=== PATIENT | male | born 1960 | race Caucasian/White ===

== ENCOUNTER 2017-12-26 08:00 | Day surgery (SDC) | payer OTHER, SELFPAY ==
--- NOTE | 2017-12-25 18:38 | HP.PCM_ITS ---
History and Physical Date of Admission: 12/26/17 HISTORY OF PRESENT ILLNESS Comes in today with persistent burning nerve pain at the distal end of the scar by the distal palm. When he bumps the area, he feels zingers and it limits his ability to use his left hand. He has been on Neurontin and it has helped but it is still persistent. This was the result of surgery on 01/02/17 where he underwent left index finger ray amputation. 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 He is able to lift a little more but when he gets to 10 lbs, his hand starts to shake. He would benefit from more OT. That was recently approved after another evaluation by a physician in [facility]. The OT has been approved for once per week. An MRI was ordered but it was denied by [facility]. Clinically he has a neuroma and would benefit from surgical exploration and excision of the neuroma on the distal palm amputation stump extending on the dorsal scar. His surgery for exploration and excision of the neuroma on the distal palm amputation stump extending on the dorsal scar was initially denied by [facility]. It was appealed. He recently saw another [facility] physician. According to the patient , this MD stated you have a neuroma and you need surgery. The appeal was reversed and [facility] approved the surgery. He presents today for further evaluation and treatment. PAST MEDICAL HISTORY Alcohol abuse allergies Asthma Back problems Bone fracture Chronic bronchitis chronic sinus problems Diabetes Gastrointestinal problems Headaches/Migraines High BP High cholesterol Hypoglycemia Kidney stones Pneumonia Skin cancer Ulcers transverse fracture middle portion distal phalanx left index finger with malunion nail bed injury left index finger laceration left long finger (zone 2) stiffness left index finger at DIP joint stiffness left index finger at PIP joint amputation status left index finger neuroma amputation stump left index finger PAST SURGICAL HISTORY Vasectomy Tonsils & Adenoids Knee surgery Foot surgery Glass removed from back Stomach surgery percutaneous skeletal fixation transverse fracture middle portion distal phalanx left index finger with K-wire fixation and exploration 2.5cm curvilinear penetrating laceration wound left long finger on the dorsum over middle phalanx (zone 2) with 3.5cm complex closure repair and nail bed repair left index finger - 08/22/15 revision amputation, left index finger through the distal middle phalanx. - 01/23/16. Left index finger ray amputation - 01/02/17 MEDICATIONS: Pravachol. Percocet. MVI. Glucophage. Zestoretic. Amaryl. Neurontin. Cimetidine. ALLERGIES: None. FAMILY HISTORY Father (biol.) - Has Family History of Anaesthetic Complications Father (biol.) - Has Family History of Diabetes Father (biol.) - Has Family History of High Cholesterol Mother (biol.) - Has Family History of Hypertension Mother (biol.) - Has Family History of High Cholesterol Sister (full) - Has Family History of Diabetes Sister (full) - Has Family History of Stroke/CVA Brother (full) - Has Family History of Seizures - Epilepsy Aunt - Has Family History of Arthritis Aunt - Has Family History of Breast Cancer Aunt - Has Family History of Other Cancer positive for ovarian cancer. SOCIAL HISTORY Alcohol Use - yes Drug Use - no Smoking History: Patient is a former smoker. patient drinks alcohol occasionally. patient takes a daily aspirin. patient does not use ibuprofen. REVIEW OF SYSTEMS General- Denies fever, fatigue and weight loss. Eyes- Denies eye pain. denies cataracts. denies glaucoma. ENT- Denies nasal congestion and sore throat. has chronic sinus problems. CV- Denies chest pain or discomfort, fatigue, lightheadedness and shortness of breath with exertion. Resp- Denies cough and shortness of breath. patient is a former smoker. GI- Denies nausea, vomiting, diarrhea and constipation. - Complains of urinary frequency. Denies hematuria. MS- Complains of joint pain and back pain. Denies stiffness, muscle weakness and arthritis. had distal phalanx fracture left index finger s/p Kwire fixation on 08/22/15. had revision amputation left index finger through distal middle phalanx on 01/23/16. had left index finger ray amputation on 01/02/17. Derm- Complains of skin cancer. Denies suspicious lesions. had laceration dorsum left long finger over middle phalanx in zone 2 that was repaired 08/22/15. Neuro- Complains of headaches. Denies weakness. Psych- Denies anxiety and depression. Endo- Complains of excessive urination and excessive thirst. has diabetes mellitus. Heme- Denies bleeding and abnormal bruising. PHYSICAL EXAMINATION General- well developed, well nourished, in no acute distress. Head- normocephalic and atraumatic. Eyes- PERRL/EOM intact, conjunctiva and sclera clear. Neck- no masses, thyromegaly, or abnormal cervical nodes. Lungs- clear bilaterally to auscultation. Heart- non-displaced PMI, chest non-tender; regular rate and rhythm, S1, S2 without murmurs, rubs, or gallops Pulses- radial pulses are palpable. Extremities- no clubbing, cyanosis or edema. Ray amputation incision healed. At the distal end of the incision by the distal palm is an area that is quite tender to palpation. He feels zingers when it gets bumped. No evidence of infection. No masses palpable. 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 With increasing golf sales associate strength, his left hand starts to shake. No axillary adenopathy. Neurologic- cranial nerves II-XII grossly intact. At the distal end of the amputation incision by the distal palm is an area of burning nerve pain suggestive of a neuroma. Skin- no rashes. Cervical Nodes- no significant adenopathy. Axillary Nodes- no significant adenopathy. Psych- alert and cooperative; normal mood and affect; normal attention span and concentration. ASSESSMENT 1. Nondisplaced transverse fracture midportion distal phalanx left index finger. 2. 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 3. Left index finger ray amputation status. 4. 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 5. Former smoker. PLAN His persistent burning nerve pain at the distal end amputation incision in the palm left hand. Am concerned about a neuroma in this area. There has been some improvement with time and massage and OT and Neurontin. However it is persistent and it affects his activities of daily living. 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 He has shown improvement with OT and would benefit from more OT. He was evaluated by a physician in [facility] who agreed that more OT was necessary. He will have OT once per week. Would like to document the presence of the neuroma with an MRI. Based on that, can proceed with surgery to excise the neuroma so he can continue his progress. The MRI was denied by [facility]. Since the MRI was denied, will still proceed with the surgery since I don't think his symptomatology will improve without it. It has been a year since the surgery. His improvement in the area of the distal scar has seemed to have plateaued. The surgery was initially denied by [facility]. It was appealed and it was reversed and the surgery was approved. With his persistent burning nerve pain, his Neurontin was increased to three times per day and it has helped. He still has increased pain after OT. Renewed his Percocet for pain, one tab (30 tabs). He can tie his shoes. He can button his shirt a little better. These activities are slowly getting better. He is also doing other work activities at home in a limited fashion such as using the vacuum, folding clothes, and washing dishes. Massage the incision with skin lotion daily to help soften up the scar. He is doing his exercises at home. I will increase him being off work until 01/28/18 (tentative). Will schedule his surgery in early December. Patient was informed of the risks and complications of the procedure including alternatives to surgery. These were discussed with the patient personally. Patient voices understanding and wishes to proceed. Some of the risks and complications were included in a form from the [employer]. Some of the risks and complications that were discussed included but were not inclusive of failure to diagnose including symptom relief, pain, infection, numbness, stiffness, loss of digit, RSD (CRPS), need for further surgery, contracture, and wound healing problems. Followup after his surgery. [facility].
[2017-12-26 08:24] VITALS: BP 138/94; PULSE 79; RESP 16; TEMP 36.3; O2SAT 96; BMI 35.2
[2017-12-26 08:41] LABS: Bedside Glucose 177 mg/dL (70-110)
[2017-12-26] MEDS: Cefazolin 2 GM in 0.9% Normal Saline 100 ML IV (09:40)
--- NOTE | 2017-12-26 09:45 | NEUR_PTH ---
PATIENT: IVETT TANG Jr. [place] [facility] [place] U#:[id number] AGE/SX: 57/M ROOM: RE12/26/[address]: Dr. iNk Orellana MD : 1960 BED: DIS: 12/26/2017 SPEC #: [id number] RECD: 12/29/17 09:52 STATUS: JACE REGold #: [id number] JAZZ: 12/26/17 09:[address]: Nik Orellana DEPT: SURGICAL PATHOLOGY RECD BY: Carlos Caceres ENTERED: 12/29/17 10:09 SP TYPE: NEUROMA OTHR DR: Dr. Braeden Reyes MD Tissues: NEUROMA Procedures: Surgery Specimen Level III HEADER OPERATION: Revision ray amputation left index finger with excision neuro PRE-OP DIAGNOSIS: Nondisplaced transverse fracture midportion distal phalanx, left index finger. Malunion transverse fracture midportion phalanx, left index finger. Left index finger ray amputation status. Neuroma amputation stump in the palm, left hand TISSUE SUBMITTED: Neuroma left palm MICROSCOPIC DIAGNOSIS Soft tissue left forearm, excision: Consistent with neuroma. SAMARIA:jaren 12/30/17 MICROSCOPIC DESCRIPTION Slides are reviewed. GROSS DESCRIPTION Received in fixative is one container labeled with the patient's name and designated neuroma left palm. The specimen consists of multiple irregular fragments of morris-white to light yellow soft tissue that in aggregate measure 5 x 3 x 0.3 cm. The entire specimen is submitted in two cassettes. ABA:jaren 12/29/17 TC:1 CPT: 33237
[2017-12-26] MEDS: Mupirocin Ointment 22gm Tube 1 APPLIC (11:39)
--- NOTE | 2017-12-26 11:52 | OP.PN_ITS ---
Immediate Post-Op Note Date of Procedure: 12/26/17 Primary Surgeon/Physician: Nik Orellana clin nurse spec: None Pre-Operative Diagnosis: 1. Nondisplaced transverse fracture midportion distal phalanx left index finger. 2. 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 3. Left index finger ray amputation status. 4. 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 5. Former smoker. Post-Operative Diagnosis: 1. Nondisplaced transverse fracture midportion distal phalanx left index finger. 2. 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 3. Left index finger ray amputation status. 4. 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 5. Former smoker. Surgery/Procedure Performed:: 1. Neuroplasty ulnar digital nerve left index finger ray amputation stump and excision painful neuroma. 2. Neuroplasty superficial sensory branch radial nerve dorsum left hand. Description of Surgical Findings:: Comes in today with persistent burning nerve pain at the distal end of the scar by the distal palm. When he bumps the area, he feels zingers and it limits his ability to use his left hand. He has been on Neurontin and it has helped but it is still persistent. This was the result of surgery on 01/02/17 where he underwent left index finger ray amputation. He has shown some improvement with range of motion and tire layer with OT. He is able to lift a little more but when he gets to 10 lbs, his hand starts to shake. He would benefit from more OT. That was recently approved after another evaluation by a physician in [facility]. The OT has been approved for once per week. An MRI was ordered but it was denied by [facility]. Clinically he has a neuroma and would benefit from surgical exploration and excision of the neuroma on the distal palm amputation stump extending on the dorsal scar. His surgery for exploration and excision of the neuroma on the distal palm amputation stump extending on the dorsal scar was initially denied by [facility]. It was appealed. He recently saw another [facility] physician. According to the patient , this MD stated you have a neuroma and you need surgery. The appeal was reversed and [facility] approved the surgery. Today the patient underwent neuroplasty ulnar digital nerve left index finger ray amputation stump and excision painful neuroma and neuroplasty superficial sensory branch radial nerve dorsum left hand. Total tourniquet time - 82 minutes. Estimated Blood Loss: 10 ml. Specimen's removed: Painful neuroma ulnar digital nerve left index finger ray amputation stump to Pathology. Drains: None. Type of Anesthesia:: General - Admit VTE Documentation VTE Present on Admission: No VTE Mechan Device Prophylaxis: SCD's VTE Pharm Prophylaxis ordered?: No
[2017-12-26 11:54] VITALS: BP 136/83; BP 138/94; PULSE 86; RESP 18; TEMP 36.1; O2SAT 93
--- NOTE | 2017-12-26 11:57 | PCM.DC ---
You will use the following diet at home:: Calorie/Carbohydrate Controlled (specify 1200, 1400, etc) Discharge Activity: May Not Drive, May Shower - in one day. place plastic bag over left hand when showering. May shower in (days): 1 - place plastic bag over left hand when showering. May resume sexual activity in: No Restrictions Weight Bearing Status: Weight bearing as tolerated Lifting Restrictions: no lifting with left hand. Keep extremity elevated above heart level: Left Arm Call your doctor if your incision/area has: Continuous Slow Oozing, Sudden Increased Bleeding, Increased Pain/ Swelling, Increased Redness, Foul Smelling Discharge, Swelling at the incision site Call your doctor if you observe: Fever of 101 or Higher, Coldness, Increased Pain, Shortness of breath, Chest pain, Calf discomfort, Uncontrolled pain Change Dressing in (Days):: 7 - will change dressing in office in a week. Cleanse incision/area with: - - wear plastic bag over left hand when showering. Allergies/Adverse Reactions: Allergies No Known Allergies Allergy (Verified 12/23/17 10:16) Medications to take at Discharge Lisinopril/Hydrochlorothiazide [Zestoretic 20/12.5 Tablet] 1 tab PO DAILY 05/17/13 Metformin HCl [Glucophage] 1,000 mg PO BID 05/17/13 Pravastatin [Pravachol] 40 mg PO QHS 05/17/13 Multivit-Min/FA/Lycopen/Lutein [Centrum Silver Tablet] 1 ea PO DAILY 08/16/15 Glimepiride [Amaryl] 8 mg PO LUNCH 01/19/16 Cimetidine 400 mg PO DAILY 12/27/16 Gabapentin [Neurontin] 400 mg PO TID 12/27/16 Pioglitazone [Actos] 45 mg PO DAILY 12/23/17 Cefadroxil [Duricef] 500 mg PO BID #10 cap 12/26/17 Diazepam [Valium] 5 mg PO 4X/DAY PRN PRN #30 tab 12/26/17 Oxycodone HCl/Acetaminophen [Percocet 5-325] 1 - 2 tab PO 4X/DAY PRN 7 Days #50 tab 12/26/17 The following prescriptions were given: Diazepam [Valium] 5 mg PO 4X/DAY PRN PRN #30 tab PRN Reason: Spasms Cefadroxil [Duricef] 500 mg PO BID #10 cap Oxycodone HCl/Acetaminophen [Percocet 5-325] 1 - 2 tab PO 4X/DAY PRN 7 Days #50 tab PRN Reason: pain Primary Care Physician: Fidel Reyes MD [Primary Care Provider] - Please Follow Up With: Nik Orellana MD When: one week. call [phone] for appt. Proposed Discharge Date: 12/26/17
[2017-12-26 12:00] VITALS: BP 115/90; BP 138/94; PULSE 81; RESP 18; O2SAT 95
--- NOTE | 2017-12-26 12:02 | DCINST_ITS ---
You will use the following diet at home:: Calorie/Carbohydrate Controlled ( specify 1200, 1400, etc) Discharge Activity: May Not Drive, May Shower - in one day. place plastic bag over left hand when showering. May shower in (days): 1 - place plastic bag over left hand when showering. May resume sexual activity in: No Restrictions Weight Bearing Status: Weight bearing as tolerated Lifting Restrictions: no lifting with left hand. Keep extremity elevated above heart level: Left Arm Call your doctor if your incision/area has: Continuous Slow Oozing, Sudden Increased Bleeding, Increased Pain/ Swelling, Increased Redness, Foul Smelling Discharge, Swelling at the incision site Call your doctor if you observe: Fever of 101 or Higher, Coldness, Increased Pain, Shortness of breath, Chest pain, Calf discomfort, Uncontrolled pain Change Dressing in (Days):: 7 - will change dressing in office in a week. Cleanse incision/area with: - - wear plastic bag over left hand when showering. Allergies/Adverse Reactions: Allergies No Known Allergies Allergy (Verified 12/23/17 10:16) Medications to take at Discharge Lisinopril/Hydrochlorothiazide [Zestoretic 20/12.5 Tablet] 1 tab PO DAILY Metformin HCl [Glucophage] 1,000 mg PO BID 05/17/13 Pravastatin [Pravachol] 40 mg PO QHS 05/17/13 Multivit-Min/FA/Lycopen/Lutein [Centrum Silver Tablet] 1 ea PO DAILY 08/16/15 Glimepiride [Amaryl] 8 mg PO LUNCH 01/19/16 Cimetidine 400 mg PO DAILY 12/27/16 Gabapentin [Neurontin] 400 mg PO TID 12/27/16 Pioglitazone [Actos] 45 mg PO DAILY 12/23/17 Cefadroxil [Duricef] 500 mg PO BID #10 cap 12/26/17 Diazepam [Valium] 5 mg PO 4X/DAY PRN PRN #30 tab 12/26/17 Oxycodone HCl/Acetaminophen [Percocet 5-325] 1 - 2 tab PO 4X/DAY PRN 7 Days #50 tab 12/26/17 The following prescriptions were given: Diazepam [Valium] 5 mg PO 4X/DAY PRN PRN #30 tab PRN Reason: Spasms Cefadroxil [Duricef] 500 mg PO BID #10 cap Oxycodone HCl/Acetaminophen [Percocet 5-325] 1 - 2 tab PO 4X/DAY PRN 7 Days #50 tab PRN Reason: pain Primary Care Physician: Fidel Reyes MD [Primary Care Provider] - Please Follow Up With: Nik Orellana MD When: one week. call [phone] for appt. Proposed Discharge Date: 12/26/17
[2017-12-26 12:15] VITALS: BP 119/76; BP 138/94; PULSE 79; RESP 18; TEMP 36.1; O2SAT 94
[2017-12-26] MEDS: oxyCODONE 5 MG Tablet 10 MG PO (12:25)
[2017-12-26 13:52] VITALS: BP 138/94
--- NOTE | 2017-12-26 18:25 | PCM.OPRPT ---
Report of Operation Date of Procedure: 12/26/17 Pre-Operative Diagnosis: 1. Nondisplaced transverse fracture midportion distal phalanx left index finger. 2. 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 3. Left index finger ray amputation status. 4. 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 5. Former smoker. Post-Operative Diagnosis: 1. Nondisplaced transverse fracture midportion distal phalanx left index finger. 2. 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 3. Left index finger ray amputation status. 4. 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 5. Former smoker. Surgery/Procedure Performed:: 1. Neuroplasty ulnar digital nerve left index finger ray amputation stump and excision painful neuroma. 2. Neuroplasty superficial sensory branch radial nerve dorsum left hand. Description of Surgical Findings:: Comes in today with persistent burning nerve pain at the distal end of the scar by the distal palm. When he bumps the area, he feels zingers and it limits his ability to use his left hand. He has been on Neurontin and it has helped but it is still persistent. This was the result of surgery on 01/02/17 where he underwent left index finger ray amputation. 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 He is able to lift a little more but when he gets to 10 lbs, his hand starts to shake. He would benefit from more OT. That was recently approved after another evaluation by a physician in [facility]. The OT has been approved for once per week. An MRI was ordered but it was denied by [facility]. Clinically he has a neuroma and would benefit from surgical exploration and excision of the neuroma on the distal palm amputation stump extending on the dorsal scar. His surgery for exploration and excision of the neuroma on the distal palm amputation stump extending on the dorsal scar was initially denied by [facility]. It was appealed. He recently saw another [facility] physician. According to the patient, this MD stated you have a neuroma and you need surgery. The appeal was reversed and [facility] approved the surgery. Patient was informed of the risks and complications of the procedure including alternatives to surgery. These were discussed with the patient personally. Patient voices understanding and wishes to proceed. Some of the risks and complications were included in a form from the [employer] [employer]. Some of the risks and complications that were discussed included but were not inclusive of failure to diagnose including symptom relief, pain, infection, numbness, stiffness, loss of digit, RSD (CRPS), need for further surgery, contracture, and wound healing problems. Total tourniquet time - 82 minutes. assistant customer service manager: None Type of Anesthesia:: General Specimen's removed: Painful neuroma ulnar digital nerve left index finger ray amputation stump to Pathology. Drains: None. Estimated Blood Loss (mL): 10 ml. Description of Procedure: Patient was taken to OR in supine position and was placed under general anesthesia. His left hand was prepped and draped in the usual fashion. SCD's were placed for DVT prophylaxis. Perioperative antibiotics were given intravenously. Using xylocaine with epinephrine, the previous scar was infiltrated. I then inflated the tourniquet to 250 mmHg after wrapping the hand with an Esmarch bandage. I made an incision through the previous scar using loupe magnification. I dissected through the subcutaneous tissue until the muscle was seen (first dorsal interosseous). A lot of dense scar tissue was present on the muscle. I continued dissection onto the palm where most of the tenderness was located. I saw the radial digital nerve of the long finger and it was intact. I followed that nerve proximally until I saw the ulnar digital nerve branching off as well. A lot of dense scar tissue was around the nerve stump and a neurolysis was obtained to free up the nerve stump. There was a neuroma present on the distal end of the nerve branch which was excised and sent to Pathology for analysis. The initial plan was to implant the nerve stump end into the interosseous muscle. However, the stump length was too small. Therefore I placed the stump on a little bit of stretch and excised just distal to the branching of the nerve at the level of the interosseous muscle. This should allow the nerve end to be far enough away from skin to minimize persistent recurrent painful symptomatology. Upon further dissection of the dorsum of the hand, it was noted there was dense scar tissue compressing the superficial sensory branch of the radial nerve on the dorsum of the hand by the long finger. An extensive neurolysis was performed using microscopic instruments. After the neurolysis, the nerve branch was intact and softer. Any debrided tissue was sent with the neuroma to Pathology for analysis to rule out carcinoma. Upon further palpation, there was some tethering on the muscle which was incised to free up the muscle and to hopefully help with range of motion exercises postoperatively. At this point I could not appreciate any more dense scar tissue that needed to be removed. The tourniquet was released after 82 minutes. Good bleeding was seen in the wound. No arterial bleeders were encountered. Hemostasis was obtained with electrocautery and gauze pressure. I then closed the wound in multiple layers with 5-0 Monocryl interrupted sutures for the deep dermis and subcutaneous tissue. The skin was approximated with 5-0 Prolene simple interrupted and vertical mattress interrupted sutures. Antibiotic ointment was applied to the incision followed by xeroform gauze and 2x2 gauze followed by Kerlix dry gauze and a compression JESUS MANUEL wrap. His fingers are free for range of motion exercises. He may need OT post discharge just like before. He tolerated the procedure well and was sent to PACU in satisfactory condition. He will be sent home on antibiotics and pain medication. He will followup in the office in a week for a wound check. His sutures will be removed in 2 weeks. He may need OT after discharge for range of motion exercises, strengthening, and for edema management. He will keep his left hand elevated during the initial postop period. Grafts/Implants Used: None. - Complications None. - Admit VTE Documentation VTE Present on Admission: No VTE Mechan Device Prophylaxis: SCD's VTE Pharm Prophylaxis ordered?: No Code Visit Surgery Charges CPT - 74726 ICD-10 - S62.661A, S61.213A, S60.411A, S69.92xA, T87.32, Z89.022, S62.661P, M79.645, M25.642 23001 S62.661A, S61.213A, S60.411A, S69.92xA, T87.32, Z89.022, S62.661P, M79.645, M25.642 97687 S62.661A, S61.213A, S60.411A, S69.92xA, T87.32, Z89.022, S62.661P, M79.645, M25.642
--- NOTE | 2017-12-27 23:26 | OP.PCM_ITS ---
Report of Operation Date of Procedure: 12/26/17 Pre-Operative Diagnosis: 1. Nondisplaced transverse fracture midportion distal phalanx left index finger. 2. 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 3. Left index finger ray amputation status. 4. 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 5. Former smoker. Post-Operative Diagnosis: 1. Nondisplaced transverse fracture midportion distal phalanx left index finger. 2. 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 3. Left index finger ray amputation status. 4. 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 5. Former smoker. Surgery/Procedure Performed:: 1. Neuroplasty ulnar digital nerve left index finger ray amputation stump and excision painful neuroma. 2. Neuroplasty superficial sensory branch radial nerve dorsum left hand. Description of Surgical Findings:: Comes in today with persistent burning nerve pain at the distal end of the scar by the distal palm. When he bumps the area, he feels zingers and it limits his ability to use his left hand. He has been on Neurontin and it has helped but it is still persistent. This was the result of surgery on 01/02/17 where he underwent left index finger ray amputation. 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 He is able to lift a little more but when he gets to 10 lbs, his hand starts to shake. He would benefit from more OT. That was recently approved after another evaluation by a physician in [facility]. The OT has been approved for once per week. An MRI was ordered but it was denied by [facility]. Clinically he has a neuroma and would benefit from surgical exploration and excision of the neuroma on the distal palm amputation stump extending on the dorsal scar. His surgery for exploration and excision of the neuroma on the distal palm amputation stump extending on the dorsal scar was initially denied by [facility]. It was appealed. He recently saw another [facility] physician. According to the patient , this MD stated you have a neuroma and you need surgery. The appeal was reversed and [facility] approved the surgery. Patient was informed of the risks and complications of the procedure including alternatives to surgery. These were discussed with the patient personally. Patient voices understanding and wishes to proceed. Some of the risks and complications were included in a form from the [place] [employer]. Some of the risks and complications that were discussed included but were not inclusive of failure to diagnose including symptom relief, pain, infection, numbness, stiffness, loss of digit, RSD (CRPS), need for further surgery, contracture, and wound healing problems. Total tourniquet time - 82 minutes. government sales manager: None Type of Anesthesia:: General Specimen's removed: Painful neuroma ulnar digital nerve left index finger ray amputation stump to Pathology. Drains: None. Estimated Blood Loss (mL): 10 ml. Description of Procedure: Patient was taken to OR in supine position and was placed under general anesthesia. His left hand was prepped and draped in the usual fashion. SCD's were placed for DVT prophylaxis. Perioperative antibiotics were given intravenously. Using xylocaine with epinephrine, the previous scar was infiltrated. I then inflated the tourniquet to 250 mmHg after wrapping the hand with an Esmarch bandage. I made an incision through the previous scar using loupe magnification. I dissected through the subcutaneous tissue until the muscle was seen (first dorsal interosseous). A lot of dense scar tissue was present on the muscle. I continued dissection onto the palm where most of the tenderness was located. I saw the radial digital nerve of the long finger and it was intact. I followed that nerve proximally until I saw the ulnar digital nerve branching off as well. A lot of dense scar tissue was around the nerve stump and a neurolysis was obtained to free up the nerve stump. There was a neuroma present on the distal end of the nerve branch which was excised and sent to Pathology for analysis. The initial plan was to implant the nerve stump end into the interosseous muscle. However, the stump length was too small. Therefore I placed the stump on a little bit of stretch and excised just distal to the branching of the nerve at the level of the interosseous muscle. This should allow the nerve end to be far enough away from skin to minimize persistent recurrent painful symptomatology. Upon further dissection of the dorsum of the hand, it was noted there was dense scar tissue compressing the superficial sensory branch of the radial nerve on the dorsum of the hand by the long finger. An extensive neurolysis was performed using microscopic instruments. After the neurolysis, the nerve branch was intact and softer. Any debrided tissue was sent with the neuroma to Pathology for analysis to rule out carcinoma. Upon further palpation, there was some tethering on the muscle which was incised to free up the muscle and to hopefully help with range of motion exercises postoperatively. At this point I could not appreciate any more dense scar tissue that needed to be removed. The tourniquet was released after 82 minutes. Good bleeding was seen in the wound. No arterial bleeders were encountered. Hemostasis was obtained with electrocautery and gauze pressure. I then closed the wound in multiple layers with 5-0 Monocryl interrupted sutures for the deep dermis and subcutaneous tissue. The skin was approximated with 5-0 Prolene simple interrupted and vertical mattress interrupted sutures. Antibiotic ointment was applied to the incision followed by xeroform gauze and 2x2 gauze followed by Kerlix dry gauze and a compression JESUS MANUEL wrap. His fingers are free for range of motion exercises. He may need OT post discharge just like before. He tolerated the procedure well and was sent to PACU in satisfactory condition. He will be sent home on antibiotics and pain medication. He will followup in the office in a week for a wound check. His sutures will be removed in 2 weeks. He may need OT after discharge for range of motion exercises, strengthening, and for edema management. He will keep his left hand elevated during the initial postop period. Grafts/Implants Used: None. - Complications None. - Admit VTE Documentation VTE Present on Admission: No VTE Mechan Device Prophylaxis: SCD's VTE Pharm Prophylaxis ordered?: No Code Visit Surgery Charges CPT - 22564 ICD-10 - S62.661A, S61.213A, S60.411A, S69.92xA, T87.32, Z89.022, S62.661P, M79.645, M25.642 83756 S62.661A, S61.213A, S60.411A, S69.92xA, T87.32, Z89.022, S62.661P, M79.645, M25.642 81466 S62.661A, S61.213A, S60.411A, S69.92xA, T87.32, Z89.022, S62.661P, M79.645, M25.642
== END 2017-12-26 13:53 | disposition home or self-care (01) ==
LOC: SDC 08:03 → AC 08:03
PROVIDERS: Family Provider Family Medicine; PCP Family Medicine; Visit Provider Surgery
PROC: (CPT 64702; principal; 2017-12-26 09:30)
DX: T87.32 Neuroma of amputation stump, left upper extremity (principal); S62.66 Nondisplaced fracture of distal phalanx of finger; X58.XXXD Exposure to other specified factors, subsequent encounter; E11.9 Type 2 diabetes mellitus without complications; I10 Essential (primary) hypertension; E78.00 Pure hypercholesterolemia, unspecified; J45.909 Unspecified asthma, uncomplicated; K21.9 Gastro-esophageal reflux disease without esophagitis; Z79.84 Long term (current) use of oral hypoglycemic drugs; Z79.899 Other long term (current) drug therapy; Z85.828 Personal history of other malignant neoplasm of skin; Z87.01 Personal history of pneumonia (recurrent); Z87.11 Personal history of peptic ulcer disease; Z87.442 Personal history of urinary calculi; Z87.891 Personal history of nicotine dependence; Z89.022 Acquired absence of left finger(s)
CPT/HCPCS: 64702; 64704; 82962; 88304; J7120; J2405

== ENCOUNTER → 2018-08-26 09:01 | Outpatient (CLI) | payer OTHER, SELFPAY ==
[2018-08-20 15:23] VITALS: BMI 36.4
[2018-08-26 10:52] LABS: ALB/GLOB Ratio 1.1 RATIO (0.9-2.4); AST(SGOT) 17 U/L (15-37); Alanine Aminotransfer ALT/SGPT 28 U/L (16-61); Albumin, Serum 3.8 g/dL (3.2-5.0); Alkaline Phosphatase 72 U/L (45-117); Anion Gap 13 (5-15); BUN 12 mg/dL (7-18); BUN/Creat Ratio 13.8 RATIO (10-20); Calcium,Total 8.3 mg/dL (8.5-10.1); Chloride 104 mmol/L (98-107); Cholesterol 158 mg/dL (200); Creatinine, Serum 0.87 mg/dL (0.70-1.30); EST Glomerular Filtration Rate 96 mL/min (>60); Est Glom Filt Rate - Afr Amer 116 mL/min (>60); Globulin 3.5 g/dL (2.2-4.2); Glucose 178 mg/dL (74-106); High Density Lipoprotein 33 mg/dL; PSA,Total - Annual Screen 0.86 ng/mL (0.00-4.00); Potassium 4.5 mmol/L (3.5-5.1); Protein, Total 7.3 g/dL (6.4-8.2); Sodium Level 142 mmol/L (136-145); Thyroid Stim Hormone (TSH) 1.13 uIU/mL (0.358-3.74); Triglycerides 212 mg/dL; Very Low Density Lipoprotein 42 mg/dL (5-40)
== END ==
PROVIDERS: Family Provider Family Medicine; PCP Family Medicine; Referring Provider Family Medicine; Visit Provider Family Medicine
DX: E11.9 Type 2 diabetes mellitus without complications (principal); Z12.5 Encounter for screening for malignant neoplasm of prostate
CPT/HCPCS: 36415; 80053; 80061; 84153; 84403; 84443; G0103

== ENCOUNTER 2018-10-16 10:00 | Outpatient (RCR) | payer OTHER, SELFPAY ==
--- NOTE | 2018-01-22 12:11 | HP.OTEVAL ---
Patient's Visit Information IVETT TANG is a 57 year old M, referred to Occupational Therapy by Nki Orellana, with a diagnosis of neuroma. Date of Evaluation: 01/21/18 Occupational Therapist: Kristie Alvarado, JAI/Veena, CHT - Subjective Subjective: Pt attends OT session following 1. Nondisplaced transverse fracture midportion distal phalanx left index finger. 2. 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 3. Left index finger ray amputation status. 4. 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 - pt states his pain does increase the more he is up and doing things around his house- pt states it takes longer to bath/dress and perform meal prep tasks. pt states he had some tremors prior to sx and now following sx he has noticed a increase in his tremor. pt states pain mtg his helping with mtg his pain, but he states he still struggles with pain . - Pain left hand Pain Intensity Range: 4, 8 - ROM Wrist: right 65/70 left 40/60 ROM Comments: left MCP MF -30/70 right 0/80. left MCP RF -15/65 right 0/70. left MCP LF -10/80 right 0/75. left PIP MF 0/90 right 0/100. left PIP RF 0/95 right 0/100. left PIP LF 0/95 right 0/90. left DIP MF 0/30 right 0/65. left DIP RF 0/25 right 0/60. left DIP LF 0 50 right 0/65 - Strength Cdl Truck Driver: right 70# left NT Lateral Pinch: right 14# left NT Tripod Pinch: right 12# left NT - Edema Wrist: right 17.5 cm left 17.5 cm - Nine Hole Peg Right: 24.31 seconds Left: 31.19 seconds Comments: pt demo tremor with task - DASH-Disabilities of Arm, Shoulder& Hand DASH Sum: 113 - Goals Goal:: pt will demo the ability to form a composite fist to hold different size objects for BADLs by d/. Goal:: pt will report pain no greater than 2/10 with use of BADLS and IADSL by d/c Goal:: PT will demo the ability to cigar packer and picker coins, hold in hand and manipulate back out to place on table top with no drop of coins by d/c. Pt will demo ind.with fastener manipuation Goal:: pt will demo understanding of scar mtg by end 2nd session. Goal:: pt will demo the ability to tolerate different textures to palm of hand to ind. hold objects by d/c - Rehabilitation General Assessment: 1. Nondisplaced transverse fracture midportion distal phalanx left index finger. 2. 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 3. Left index finger ray amputation status. 4. 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 pt demo with decrease in composite fist, pain and limited strength making use of left hand with daily occupations more difficult and some unable to perform. pt demo hypersensitivity, and increase chance of scar adhesions. pt would benefit from skilled OT services to decrease pts pain , increase functional use of left UE 3xweekx 4 weeks. Rehabilitation Potential: Good - Anticipated Interventions Anticipated Interventions: Strengthening, Edema Control, Scar Care, Triggerpoint Release, Desensitization, Wound Care, Modalities, Orthoses, Joint Protection/Energy Conservation, Ergonomic Education - Visit Plan Frequency: 3x /Week Duration: 4 Weeks TEXT: Thank you for the opportunity to evaluate your patient. For Medicare and Medicare HMO plans, please review the plan of care and approve it. It will need to be FAXED BACK to us at [phone] for Medicare purposes. Please let me know if there are questions or concerns regarding this plan of care. Physician Signature: Date:
--- NOTE | 2018-06-02 11:22 | HP.OTREVAL ---
Nik Orellana, It has been my pleasure to treat IVETT TANG over the last 24 visits for neuroma. Please see the progress note below for an update on the occupational therapy plan of care! Subjective: Pt arrived for 2nd half of therapy. pt. arrives and states that he was in 8/10 pain last night and was unable to sleep. pt has initiated light home mtg tasks but results in pain following. pt states it does take longer to complete tasks as he is afraid he is going to hurt his hand. Objective/Function: difficult to complete chest press and bicep curls-. therapy has engaged pt in PRE, with use of calender let off operator/pinch and UB strengthening- we are using the BTE and free weights to gain strength. Pt has increased all his resistence on the BTE. Pt would benefit from cont. of therapy to increase UB strength and hand use. Pt tolerates therapy but does become painful. right calender let off operator strength 70#. left calender let off operator strength 40#. 9 hole peg test inital 31.1 sec, and current 31.1 sec. Plan Frequency: 3x /Week Duration: 4 Weeks Visits in this POC: 12 Plan: cont with gym equipment and UE strengthening Goals - Goals Goal:: Pt will demo a calender let off operator strength of 50# or greater to return to performing ind. home mtg tasks by D/C Goal:: pt will demo the ability to form a composite fist to hold different size objects for BADLs by d/. Goal:: pt will report pain no greater than 2/10 with use of BADLS and IADSL by d/c Goal:: PT will demo the ability to pickle solution maker coins, hold in hand and manipulate back out to place on table top with no drop of coins by d/c. Pt will demo ind.with fastener manipuation Goal:: pt will demo understanding of scar mtg by end 2nd session. Goal:: pt will demo the ability to tolerate different textures to palm of hand to ind. hold objects by d/c Anticipated Interventions Anticipated Interventions: Strengthening, Edema Control, Scar Care, Triggerpoint Release, Desensitization, Wound Care, Modalities, Orthoses, Joint Protection/Energy Conservation, Ergonomic Education, Fine Motor Coord/Nate Please do not hesitate to contact me at [phone] by phone or if you have questions or concerns regarding this new plan of care! Sincerely, Kristie Alvarado, OTR/L, CHT
--- NOTE | 2018-06-05 10:46 | OTREVAL_ITS ---
Nik Orellana, It has been my pleasure to treat IVETT TANG over the last 24 visits for neuroma. Please see the progress note below for an update on the occupational therapy plan of care! Subjective: Pt arrived for 2nd half of therapy. pt. arrives and states that he was in 8/10 pain last night and was unable to sleep. pt has initiated light home mtg tasks but results in pain following. pt states it does take longer to complete tasks as he is afraid he is going to hurt his hand. Objective/Function: difficult to complete chest press and bicep curls-. therapy has engaged pt in PRE, with use of sports centre manager/pinch and UB strengthening- we are using the BTE and free weights to gain strength. Pt has increased all his resistance on the BTE. Pt would benefit from cont. of therapy to increase UB strength and hand use. Pt tolerates therapy but does become painful. right sports centre manager strength 70#. left sports centre manager strength 40#. 9 hole peg test inital 31.1 sec, and current 27.19 sec. Plan Frequency: 3x /Week Duration: 4 Weeks Visits in this POC: 12 Plan: cont with gym equipment and UE strengthening Goals - Goals Goal:: Pt will demo a sports centre manager strength of 50# or greater to return to performing ind. home mtg tasks by D/C Goal:: pt will demo the ability to form a composite fist to hold different size objects for BADLs by d/. Goal:: pt will report pain no greater than 2/10 with use of BADLS and IADSL by d/c Goal:: PT will demo the ability to pickle solution maker coins, hold in hand and manipulate back out to place on table top with no drop of coins by d/c. Pt will demo ind.with fastener manipuation Goal:: pt will demo understanding of scar mtg by end 2nd session. Goal:: pt will demo the ability to tolerate different textures to palm of hand to ind. hold objects by d/c Anticipated Interventions Anticipated Interventions: Strengthening, Edema Control, Scar Care, Triggerpoint Release, Desensitization, Wound Care, Modalities, Orthoses, Joint Protection/Energy Conservation, Ergonomic Education, Fine Motor Coord/Nate Please do not hesitate to contact me at [phone] by phone or if you have questions or concerns regarding this new plan of care! Sincerely, Kristie Alvarado, OTR/L, CHT
--- NOTE | 2018-09-16 12:24 | HP.OTREVAL ---
Nik Orellana MD, It has been my pleasure to treat IVETT TANG over the last 1 visits for neuroma. Please see the progress note below for an update on the occupational therapy plan of care! Subjective: pt states he is having same problems with lifting of objects with left UE/lift carry. pt states sensation to touch over where 1st ray was removed-. pt states he his compensating for use of left hand-due to the limited strength Objective/Function: right 70#. left 50#. right lateral pinch to IF and thumb 24#. left lateral pinch to MF 14#. right tripod with MF/RF 12#. left tripod with MF/RD 16#-. pt demo with a decrease in left UE MMT 4-/5 right 5/5. Due to tenderness where IF was removed- pt would benefit from custom compression glove with silicone sheet to provide support and protection. Therapist will contact Dr. gill to get order. Plan Frequency: 2-3x /Week Duration: 4 Weeks Visits in this POC: 10 Plan: pt to cont with gym eq. 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 home mtg tasks by D/C. pt will demo a increase in left MMT of UE to 4+/5 to increase pts ind with ADLS and IADLs by D/C Goal:: pt will demo the ability to form a composite fist to hold different size objects for BADLs by d/. Goal:: pt will report pain no greater than 2/10 with use of BADLS and IADSL by d/c Goal:: PT will demo the ability to fern picker coins, hold in hand and manipulate back out to place on table top with no drop of coins by d/c. Pt will demo ind.with fastener manipuation Goal:: pt will demo understanding of scar mtg by end 2nd session. Goal:: pt will demo the ability to tolerate different textures to palm of hand to ind. hold objects by d/c Anticipated Interventions Anticipated Interventions: Strengthening, Edema Control, Scar Care, Triggerpoint Release, Desensitization, Wound Care, Modalities, Orthoses, Joint Protection/Energy Conservation, Ergonomic Education, Fine Motor Coord/Nate Please do not hesitate to contact me at [phone] by phone or if you have questions or concerns regarding this new plan of care! Sincerely, Kristie Alvarado, OTR/L, CHT
--- NOTE | 2018-11-17 15:31 | HP.OTDCSUM_ITS ---
HP - OT D/C Summary It has been my pleasure to treat IVETT TANG under orders from Nik Orellana MD, for the diagnosis of neuroma for a total of 10 visit(s). Please see the following information for a summary of their discharge status. - Overall Improvement % Improvement: 70 - Objective Objective/Function: pt tolerated exercises well- pt gained UB strength during his sessions with OT- pt tolerated use of gym eq. well. Noted more SOB with the resistive ex. Pts resistance on gym eq. went frmo 15# to 30# and 40# during his ex. program. pt did well and was advised to cont. with a PRE for improving his general strength and health. - Goals Patient Goals: Regain Mobility, Decrease Pain, Improve Fine Motor Skills, Use Hand/Wrist/Arm Normally Again, Sleep Better, Be More Independent in ADLS, Decrease Sensitivity Goal:: Pt will demo a slot editor strength of 65# or greater to return to performing ind. home mtg tasks by D/C. pt will demo a increase in left MMT of UE to 4+/5 to increase pts ind with ADLS and IADLs by D/C Goal:: pt will demo the ability to form a composite fist to hold different size objects for BADLs by d/. Goal:: pt will report pain no greater than 2/10 with use of BADLS and IADSL by d/c Goal:: PT will demo the ability to cotton picking machine operator coins, hold in hand and manipulate back out to place on table top with no drop of coins by d/c. Pt will demo ind.with fastener manipuation Goal:: pt will demo understanding of scar mtg by end 2nd session. Goal:: pt will demo the ability to tolerate different textures to palm of hand to ind. hold objects by d/c - Plan Plan: D/C with HEP - D/C Information If there are questions or concerns regarding this patient's occupational therapy, please fell free to call me at [phone]. Thank you for the referral of this patient. Sincerely, Kristie Alvarado, OTR/L, CHT
== END 2018-10-16 19:00 | disposition home or self-care (01) ==
LOC: OT 10:00
PROVIDERS: Family Provider Family Medicine; PCP Family Medicine; Visit Provider Surgery
DX: S62.661D Nondisplaced fracture of distal phalanx of left index finger, subsequent encounter for fracture with routine healing (principal); S61.213D Laceration without foreign body of left middle finger without damage to nail, subsequent encounter; S69.92XD Unspecified injury of left wrist, hand and finger(s), subsequent encounter; S62.66 Nondisplaced fracture of distal phalanx of finger; T87.32 Neuroma of amputation stump, left upper extremity; Z89.022 Acquired absence of left finger(s)
CPT/HCPCS: 97035; 97110; 97140; 97166; 97530

== ENCOUNTER 2019-04-01 05:55 | Day surgery (SDC) | payer OTHER, SELFPAY ==
[2019-03-03 10:35] VITALS: BMI 36.4
--- NOTE | 2019-03-31 23:55 | HP.PCM_ITS ---
History and Physical Date of Admission: 04/01/19 HISTORY OF PRESENT ILLNESS His pain and tingling in his palm from where his previous neuroma was excised in 12/15 had been improving with desensitization. He states the pain had initially improved since his surgery on 12/26/17 where he underwent neuroplasty ulnar digital nerve left index finger ray amputation stump and excision painful neuroma and neuroplasty superficial sensory branch radial nerve dorsum left hand. He states his Pain Management MD was decreasing his Neurontin. However he restarted his OT for strengthening and his symptomatology had worsened initially but has improved with time. He has finished the OT for strengthening. His Therapist recommended a compression garment with a scar sheet to help him with strengthening as well as for his neuralgia and hypersensitivity. He states that the OT is helping with his strengthening and that the OT suggested that he join a fitness facility to help with his strengthening and improve his overall health. The patient looked into [employer] and it is $40 per month which he states he is not able to afford. So he continues his OT strengthening exercises at home. He states a couple of months ago, he has noticed increased pain in his left palm not just at the scar area but extending ulnarly into the palm. It wakes him up at night. He describes it as pins and needles. Now that pins and needles and burning sensation has traveled up the radial aspect of the long finger. 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 He denies any trauma. He presents today for further evaluation and treatment. He had a second opinion from a physician in [place] on 01/07/19. The conclusion was that the patient reached MMI. I disputed the conclusion and the patient recently went to court and the decision was overturned and his surgery was approved. PAST MEDICAL HISTORY AMPUTATION STATUS STUMP LEFT INDEX FINGER Alcohol abuse Asthma Back problem Bone fracture CHRONIC SINUS PROBLEMS Chronic bronchitis Diabetes High cholesterol History of migraine headaches Hypoglycemia Kidney stones LACERATION LEFT LONG FINGER (ZONE 2 ) Pneumonia STIFFNESS LEFT INDEX FINGER AT PIP JOINT STIFFNESS LEFT INDEX FINGER AT DIP JOINT Skin cancer TRANSVERSE FRACTURE MIDDLE PORTION DISTAL PHALANX ULCERS BP (high blood pressure) PAST SURGICAL HISTORY GLASS REMOVED FROM BACK knee surgery foot surgery vasectomy LEFT INDEX FINGER RAY AMPUTATION PERCUTANEOUS SKELETAL FIXATION TRANSVERSE FRACTURE REVISION AMPUTATION LEFT INDEX FINGER STOMACH SURGERY TONSILS AND ADENOIDS ALLERGIES No Known Allergies MEDICATIONS Lisinopril/Hydrochlorothiazide [Zestoretic 20/12.5 Tablet] Metformin HCl [Glucophage] Pravastatin [Pravachol] ] Multivit-Min/FA/Lycopen/Lutein [Centrum Silver Tablet] Glimepiride [Amaryl] Cimetidine Pioglitazone [Actos] Diazepam [Valium] gabapentin fluticasone propionate lincomycin ibuprofen albuterol sulfate HFA acarbose FAMILY HISTORY Father - Family history of anesthetic complications, Diabetes, High cholesterol Mother - Hypertension, High cholesterol Sister - Diabetes, CVA (cerebral vascular accident) Brother - Epilepsy Aunt - Arthritis, Breast cancer, Cancer SOCIAL HISTORY Smoking Status: Former smoker second hand exposure: No alcohol intake: former substance use type: does not use REVIEW OF SYSTEMS General- Denies fever, fatigue and weight loss. Eyes- Denies eye pain. denies cataracts. denies glaucoma. ENT- Denies nasal congestion and sore throat. has chronic sinus problems. CV- Denies chest pain or discomfort, fatigue, lightheadedness and shortness of breath with exertion. Resp- Denies cough and shortness of breath. patient is a former smoker. GI- Denies nausea, vomiting, diarrhea and constipation. - Complains of urinary frequency. Denies hematuria. MS- Complains of joint pain and back pain. Denies stiffness, muscle weakness and arthritis. Had left index finger ray amputation 01/13. He is having increased pins and needles sensation especially on the palmar surface where the left index finger was amputated. Derm- Complains of skin cancer. Denies suspicious lesions. had laceration dorsum left long finger over middle phalanx in zone 2 that was repaired 08/22/15. He had neuroplasty ulnar digital nerve left index finger ray amputation stump and excision painful neuroma and neuroplasty superficial sensory branch radial nerve dorsum left hand 12/26/17. Neuro- Complains of headaches. Denies weakness. Psych- Denies anxiety and depression. Endo- Complains of excessive urination and excessive thirst. has diabetes mellitus. Heme- Denies bleeding and abnormal bruising. PHYSICAL EXAMINATION General- well developed, well nourished, in no acute distress. Head- normocephalic and atraumatic. Eyes- PERRL/EOM intact, conjunctiva and sclera clear. Neck- no masses, thyromegaly, or abnormal cervical nodes. Lungs- clear bilaterally to auscultation. Heart- non-displaced PMI, chest non-tender; regular rate and rhythm, S1, S2 without murmurs, rubs, or gallops Pulses- radial pulses are palpable. Extremities- no clubbing, cyanosis or edema. Ray amputation incision healed. The hypersensitivity in the scar on the palmar surface had initially lessened with time and massage. This was in the area of the previous excision of his neuroma. Much less tenderness to palpation. The pins and needles and tingling in the area of the previous excision of his neuroma had initially lessened as well. However, just recently about a month ago he has noticed increased pain in the palm in the area of the previous scar and extending more ulnarly in the palm. It is hard for me to touch it because of the pain. He may be developing an early RSD (CRPS). Some scar thickening is palpable which could be irritating the nerves leading to the increased stabbing and pins and needles sensation. There are no sensory deficits in the left thumb. There is decreased sensation on the radial aspect of the index finger. Part of the scar contracture that is forming in this area could be scar tissue adhering to the digital nerve. There is some scar thickening in the first web space that has some nodularity and tenderness that is unchanged from his last visit. The scar contracture in the first webspace at the edge of the surgical scar has not worsened since his last visit. The first web space will ghanshyam with abduction of the thumb. He has good range of motion. Has good thumb opposition. 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 These neuralgias and hypersensitivity which had improved and now are affecting his ADL's at this time. He now has trouble lifting a gallon of milk, lifting a mug of coffee, gripping and turning a steering wheel, and gripping opening lids. No axillary adenopathy. Neurologic- cranial nerves II-XII grossly intact. He has an early first web space painful scar contracture. There are some indentations on either side of this scarring from the previous excision of the neuroma. More scarring is seen extending ulnarly in the palm by the index and long finger. The tingling in the palm where his previous neuroma was removed has increased and has extended ulnarly in the palm. Some paresthesias noted on the radial aspect of the long finger. Skin- no rashes. Cervical Nodes- no significant adenopathy. Axillary Nodes- no significant adenopathy. Psych- alert and cooperative; normal mood and affect; normal attention span and concentration. ASSESSMENT 1. Nondisplaced transverse fracture midportion distal phalanx left index finger. 2. 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 3. Left index finger ray amputation status. 4. 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 5. Recurrent neuralgia with hypersensitivity amputation stump in the palm left hand. 6. Paresthesias radial digital nerve left long finger. 7. Scar contracture first web space left hand. 8. Former smoker. 9. Early RSD (CRPS) left hand. PLAN He has worsening left hand pain mostly in the first webspace where a scar contracture is forming at the edge of the surgical scar and extending more ulnarly in the palm. He states it has recently worsened a couple months ago. He denies trauma. He has been wearing the JESUS MANUEL wrap to help with the sensitivity and swelling. OT is recommending a custom compression garment with a scar sheet to help with neuralgia, hypersensitivity and assist with strengthening. Awaiting approval from [facility]. He has completed his recent OT for strengthening. He will continue his OT strengthening exercises at home. He has a first web space painful scar contracture that is worsening since his last visit. He would benefit from excision of this painful scar contracture with multiple Z-plasty reconstruction. At the same time can evaluate scar tissue on the sensory nerves in the palm for neuroplasty especially to the radial side of the index finger. There is also some paresthesia on the radial side of the long finger that may need a neuroplasty as well. It would be done under general anesthesia and tourniquet control on an outpatient basis. The patient recently went to court and the MMI decision was overturned and his surgery was approved. Will schedule the surgery for end of February/early March. His tingling in the palm where his previous neuroma was removed had initially lessened but has increased with increased pain and extension more ulnarly in the palm. Today his swelling has decreased. Encouraged bimanual massage of the first webspace to help with desensitization. He has good range of motion. Has good thumb opposition. 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 He has trouble now lifting a gallon of milk, lifting a mug of coffee, gripping and turning a steering wheel, turning a handle on a machine, and opening lids. He was using a rubber band at home to help with his exercises to help with strengthening but is having trouble because of his increased pain. I would like to see him be able to lift up to 10 lbs as it would increase his options for future employment. He states he has some Percocet at home at present. Pain management is managing his Neurontin and may have to increase it temporarily until symptoms improve. There are some concerns about early RSD (CRPS). Will start him on Zoloft and start him on Procardia XL provided he obtain a blood pressure cuff machine at [facility]. He would not take the medication if his systolic blood pressure is less than 110 mmHg. He states the medication was not approved by [facility]. So he has not taken them thus far. Also with the presence of RSD (CRPS), he would benefit from more OT as well. Can schedule that after his surgery. Followup one month. Plan return to work April 30, 2019, (tentative). With these new painful symptoms, will hold off on Vocational Rehab evaluation at this time. Will reassess timing for Vocational Rehab after he has healed from his surgery. Surgery will be done under general anesthesia and tourniquet control on an outpatient basis. Patient was informed of the risks and complications of the procedure including alternatives to surgery. These were discussed with the patient personally. Patient voices understanding and wishes to proceed. Some of the risks and complications that were discussed included but were not inclusive of failure to diagnose including symptom relief, pain, infection, numbness, stiffness, loss of digit, RSD (CRPS), need for further surgery, contracture, and wound healing problems.
[2019-04-01] VITALS (16 sets, daily range): BP systolic 100–137; BP diastolic 64–102; PULSE 70–85; RESP 16–18; TEMP 36.3–36.4; O2SAT 89–98; BMI 35.3
[2019-04-01 06:21] LABS: Bedside Glucose 142 mg/dL (70-110)
[2019-04-01] MEDS: Mupirocin Ointment 22gm Tube 1 APPLIC (07:02)
[2019-04-01] MEDS: Cefazolin 2 GM in 0.9% Normal Saline 100 ML IV (07:28)
--- NOTE | 2019-04-01 07:30 | NEUR_PTH ---
PATIENT: IVETT TANG Jr. LOC: [facility] [place] U#:[id number] AGE/SX: 58/M ROOM: RE04/01/[address]: Dr. Nik Orellana MD : 1960 BED: DIS: 04/01/2019 SPEC #: [id number] RECD: 04/01/19 09:19 STATUS: JACE REGold #: [id number] JAZZ: 04/01/19 07:[address]: Nik Orellana DEPT: SURGICAL PATHOLOGY RECD BY: Pako Brown ENTERED: 04/01/19 09:33 SP TYPE: NEUROMA OTHR DR: Dr. Braeden Reyes MD Tissues: NEUROMA Procedures: Surgery Specimen Level III HEADER OPERATION: Surgical prep first web space left hand, excision painful scar PRE-OP DIAGNOSIS: Nondisplaced transverse fracture midportion distal phalanx left index finger; malunion transverse fracture midportion distal phalanx left index finger; left index finger ray amputation status; neuroma amputation stump in palm left hand; recurrent neuralgia with hypersensitivity amputation stump in palm left hand TISSUE SUBMITTED: Left hand scar tissue and neuroma MICROSCOPIC DIAGNOSIS Soft tissue of left hand, excision: Consistent with neuroma. Suture granuloma and fibrosis consistent with cicatrix. AM:[email or web address] 04/02/19 COMMENT Reference is made to the patient's soft tissue left forearm, excision from 12/30/17 ([id number]) in which changes of neuroma were identified. MICROSCOPIC DESCRIPTION Slides are reviewed. GROSS DESCRIPTION Received in fixative is one container labeled with the patient's name and designated left hand scar tissue and neuroma. The specimen consists of multiple pieces of skin and soft tissue that in aggregate measure 3 x 2.5 x 0.3 cm. The entire specimen is submitted in one cassette. / ABA:ashley 04/01/19 TC: 5 CPT: 05435
--- NOTE | 2019-04-01 08:54 | OP.PCM_ITS ---
Report of Operation Date of Procedure: 04/01/19 Pre-Operative Diagnosis: 1. Nondisplaced transverse fracture midportion distal phalanx left index finger. 2. 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 3. Left index finger ray amputation status. 4. 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 5. Recurrent neuralgia with hypersensitivity amputation stump in the palm left hand. 6. Paresthesias radial digital nerve left long finger. 7. Scar contracture first web space left hand. 8. Former smoker. 9. Early RSD (CRPS) left hand. Post-Operative Diagnosis: Same. Surgery/Procedure Performed:: 1. Neuroplasty ulnar digital nerve left index finger ray amputation stump and excision painful neuroma. 2. Neuroplasty radial digital nerve left long finger. 3. Surgical preparation first web space left hand with excision scar contracture and double opposing z-plasty reconstruction (2 cm2 for each flap). Description of Surgical Findings:: His pain and tingling in his palm from where his previous neuroma was excised in 12/15 had been improving with desensitization. He states the pain had initially improved since his surgery on 12/26/17 where he underwent neuroplasty ulnar digital nerve left index finger ray amputation stump and excision painful neuroma and neuroplasty superficial sensory branch radial nerve dorsum left hand. He states his Pain Management MD was decreasing his Neurontin. However he restarted his OT for strengthening and his symptomatology had worsened initially but has improved with time. He has finished the OT for strengthening. His Therapist recommended a compression garment with a scar sheet to help him with strengthening as well as for his neuralgia and hypersensitivity. He states that the OT is helping with his strengthening and that the OT suggested that he join a fitness facility to help with his strengthening and improve his overall health. The patient looked into [employer] and it is $40 per month which he states he is not able to afford. So he continues his OT strengthening exercises at home. He states a couple of months ago, he has noticed increased pain in his left palm not just at the scar area but extending ulnarly into the palm. It wakes him up at night. He describes it as pins and needles. Now that pins and needles and burning sensation has traveled up the radial aspect of the long finger. 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 He denies any trauma. He presents today for further evaluation and treatment. He had a second opinion from a physician in [place] on 01/07/19. The conclusion was that the patient reached MMI. I disputed the conclusion and the patient recently went to court and the decision was overturned and his surgery was approved. Patient was informed of the risks and complications of the procedure including alternatives to surgery. These were discussed with the patient personally. Patient voices understanding and wishes to proceed. Some of the risks and complications were included in a form from the [employer]. Some of the risks and complications that were discussed included but were not inclusive of failure to diagnose including symptom relief, pain, infection, numbness, stiffness, loss of digit, RSD (CRPS), need for further surgery, contracture, and wound healing problems. Total tourniquet time - 55 minutes. woven blind loom tender: None Type of Anesthesia:: General Specimen's removed: Painful neuroma and scar tissue left palm in first web space to Pathology. Drains: None. Estimated Blood Loss (mL): 2 ml. Description of Procedure: Patient was taken to OR in supine position and was placed under general anesthesia. His left hand was prepped and draped in the usual fashion. SCD's were placed for DVT prophylaxis. Perioperative antibiotics were given intravenously. Using xylocaine with epinephrine, the previous scar was infiltrated to help with postoperative pain relief. I then inflated the tourniquet to 250 mmHg after wrapping the hand with an Esmarch bandage. I designed a double opposing z-plasty incision in the first web space where the scar contracture is located. I made an incision through the scar contracture using loupe magnification. I dissected through the subcutaneous tissue until the muscles were seen (first dorsal interosseous and flexor pollicis brevis). A lot of dense scar tissue was present on the muscle. This dense scar tissue was excised. I continued dissection onto the palm where most of the tenderness was located. I dissected the radial digital nerve of the long finger and it was densely encased in scar tissue. A neurolysis was performed to free up the radial digital nerve of the long finger. I then followed that nerve proximally until I saw the ulnar digital nerve branching off as well in the thenar musculature. A lot of dense scar tissue was around the nerve stump and a neurolysis was obtained to free up the nerve stump. There was a thickened mass consistent with a neuroma present on the distal end of the ulnar digital nerve branch which was excised and sent to Pathology for analysis. The nerve stump was placed on stretch and after excision, it retracted proximally into the thenar musculature. This should allow the nerve end to be far enough away from skin to minimize persistent recurrent painful symptomatology. Any debrided tissue was sent with the neuroma to Pathology for analysis to rule out carcinoma. At this point I palpated the base of the wound and could not appreciate any more dense scar tissue that needed to be removed. The tourniquet was released after 55 minutes. Good bleeding was seen in the wound. No arterial bleeders were encountered. Hemostasis was obtained with electrocautery and gauze pressure. I then proceeded with wound closure with transposition of the double opposing z-plasty skin flaps with 5-0 Prolene simple interrupted sutures. The size of the flaps needed for the double opposing z-plasty was 2 cm2 for each flap or 4 cm2. Antibiotic ointment was applied to the incision followed by Xeroform gauze and 4x4 gauze followed by 2 inch Nick and a compression JESUS MANUEL wrap. His fingers are free for range of motion exercises. He may need OT post discharge just like before. He tolerated the procedure well and was sent to PACU in satisfactory condition. He will be sent home on antibiotics and pain medication. He will keep his left hand elevated during the initial postoperative period. He will followup in the office in a week for a wound check. His sutures will be removed in 2 weeks. He may need OT after discharge for range of motion exercises, strengthening, and for edema management. Grafts/Implants Used: None. - Complications None. - Admit VTE Documentation VTE Present on Admission: No VTE Mechan Device Prophylaxis: SCD's VTE Pharm Prophylaxis ordered?: No Code Visit Surgery Charges CPT - 14025 ICD-10 - S62.661A, S61.213A, S60.411A, S69.92xA, S62.661P, T87.32, Z89.022, G90.512 65311 S62.661A, S61.213A, S60.411A, S69.92xA, S62.661P, T87.32, Z89.022, G90.512 99493 S62.661A, S61.213A, S60.411A, S69.92xA, S62.661P, T87.32, Z89.022, G90.512 64517 S62.661A, S61.213A, S60.411A, S69.92xA, S62.661P, T87.32, Z89.022, G90.512 52876 S62.661A, S61.213A, S60.411A, S69.92xA, S62.661P, T87.32, Z89.022, G90.512 83191 S62.661A, S61.213A, S60.411A, S69.92xA, S62.661P, T87.32, Z89.022, G90.512
[2019-04-01 09:06] LABS: Bedside Glucose 172 mg/dL (70-110)
[2019-04-01] MEDS: Lactated Ringers 1,000 ML 100 ML IV (09:07)
--- NOTE | 2019-04-01 09:11 | DCINST_ITS ---
You will use the following diet at home:: Calorie/Carbohydrate Controlled (specify 1200, 1400, etc) Discharge Activity: May not drive while taking narcotic pain medications., May Shower - place plastic bag over left hand when showering. Return to work on:: 05/30/19 - tentative. May shower in (days): 1 - wear plastic bag over left hand when showering. May resume sexual activity in: No Restrictions Weight Bearing Status: Weight bearing as tolerated Lifting Restrictions: 10 lbs. Keep extremity elevated above heart level: Left Arm Call your doctor if your incision/area has: Continuous Slow Oozing, Sudden Increased Bleeding, Increased Pain/ Swelling, Increased Redness, Foul Smelling Discharge, Swelling at the incision site Call your doctor if you observe: Fever of 101 or Higher, Coldness, Increased Pain, Shortness of breath, Chest pain, Calf discomfort, Uncontrolled pain Change Dressing in (Days):: 7 - will change dressing in office. Cleanse incision/area with: - - wear plastic bag over left hand when showering. Allergies/Adverse Reactions: Allergies No Known Allergies Allergy (Verified 04/01/19 06:24) Medications to take at Discharge Lisinopril/Hydrochlorothiazide [Zestoretic 20/12.5 Tablet] 1 tab PO DAILY 05/17/13 Metformin HCl [Glucophage] 1,000 mg PO BID 05/17/13 Pravastatin [Pravachol] 40 mg PO QHS 05/17/13 Multivit-Min/FA/Lycopen/Lutein [Centrum Silver Tablet] 1 ea PO DAILY 08/16/15 Glimepiride [Amaryl] 8 mg PO LUNCH 01/19/16 Pioglitazone [Actos] 45 mg PO DAILY 12/23/17 fluticasone propionate 50 mcg/actuation nasal spray,suspension 2 spray INTRANASAL DAILY 05/20/18 albuterol sulfate HFA 90 mcg/actuation aerosol inhaler 1 puff INHALATION Q6H PRN 11/11/18 acarbose 25 mg tablet 50 mg PO TID tab 12/09/18 Ranitidine [Zantac] 300 mg PO DAILY 03/25/19 Cefadroxil [Duricef] 500 mg PO BID #10 cap 04/01/19 Diazepam [Valium] 5 mg PO TID PRN PRN #20 tab 04/01/19 Docusate Sodium [Colace] 100 mg PO BID #60 cap 04/01/19 Gabapentin [Neurontin] 400 mg PO BID #60 cap 04/01/19 Lactobacillus Acidophilus/Fos [Acidophilus Probiotic Tablet] 1 ea PO BID #10 tab 04/01/19 Oxycodone HCl/Acetaminophen [Percocet 7.5-325 mg Tablet] 1 ea PO .[id number] PRN 7 Days #40 tab 04/01/19 proMETHazine tablet [Phenergan tablet] 25 mg PO 4X/DAY PRN PRN #30 tab 04/01/19 The following prescriptions were given: Lactobacillus Acidophilus/Fos [Acidophilus Probiotic Tablet] 1 ea PO BID #10 tab Prescription Printed Docusate Sodium [Colace] 100 mg PO BID #60 cap Prescription Printed Cefadroxil [Duricef] 500 mg PO BID #10 cap Prescription Printed Gabapentin [Neurontin] 400 mg PO BID #60 cap Prescription Printed Oxycodone HCl/Acetaminophen [Percocet 7.5-325 mg Tablet] 1 ea PO .[id number] PRN 7 Days #40 tab Prescription Printed proMETHazine tablet [Phenergan tablet] 25 mg PO 4X/DAY PRN PRN #30 tab PRN Reason: Nausea Prescription Printed Diazepam [Valium] 5 mg PO TID PRN PRN #20 tab PRN Reason: Spasms Prescription Printed Primary Care Physician: Fidel Reyes MD [Primary Care Provider] - Test Results: Test results from this visit will be discussed in further detail at your follow- up appointment, if applicable. Please Follow Up With: Nik Orellana MD When: one week. call [phone] for appt. Proposed Discharge Date: 04/01/19
[2019-04-01] MEDS: Ipratropium/Albuterol Sulfate 3 ML AMPUL.NEB INHALATION (09:36)
== END 2019-04-01 12:06 | disposition home or self-care (01) ==
LOC: SDC 05:56 → AC 05:56
PROVIDERS: Family Provider Family Medicine; PCP Family Medicine; Referring Provider Surgery; Visit Provider Surgery
PROC: (CPT 64704; principal; 2019-04-01 07:20)
DX: G58.8 Other specified mononeuropathies (principal); L90.5 Scar conditions and fibrosis of skin; R20.2 Paresthesia of skin; G90.512 Complex regional pain syndrome I of left upper limb; S62.631 Displaced fracture of distal phalanx of left index finger; J45.909 Unspecified asthma, uncomplicated; E11.9 Type 2 diabetes mellitus without complications; E78.00 Pure hypercholesterolemia, unspecified; I10 Essential (primary) hypertension; K21.9 Gastro-esophageal reflux disease without esophagitis; Z87.442 Personal history of urinary calculi; Z85.828 Personal history of other malignant neoplasm of skin; Z79.84 Long term (current) use of oral hypoglycemic drugs; Z79.51 Long term (current) use of inhaled steroids; Z79.899 Other long term (current) drug therapy; Z87.891 Personal history of nicotine dependence; Z89.022 Acquired absence of left finger(s); X58.XXXD Exposure to other specified factors, subsequent encounter
CPT/HCPCS: 64704; 64776; 82962; 88304; 94640; J7120; J2405

== ENCOUNTER 2019-06-29 10:00 | Outpatient (RCR) | payer OTHER, SELFPAY ==
[2019-04-29 13:15] VITALS: BMI 35.3
[2019-05-06 13:26] VITALS: BMI 35.3
--- NOTE | 2019-05-12 16:29 | HP.OTEVAL ---
Patient's Visit Information IVETT TANG Jr. is a 58 year old M, referred to Occupational Therapy by JOSSY Gilman, with a diagnosis of nuroma of amputation stump. Date of Evaluation: 05/12/19 Occupational Therapist: Kristie Alvarado, JAI/Veena, CHT - Subjective Subjective: This 58 year old male was seen for OT eval following Neuroplasty ulnar digital nerve left index finger ray amputation stump and excision painful neuroma. 2. Neuroplasty radial digital nerve left long finger. 3. Surgical preparation first web space left hand with excision scar contracture and double opposing z-plasty reconstruction (2 cm2 for each flap). PT reports sx was 5 weeks ago on 2018. Pt states the nerve pain less, no sharp shooting pains. pt states pain at night is 7/10, Pt is hopeful he can be pain free with daily tasks if he uses his left hand for daily occupations. Pt also voiced interrest in prosthetic devices. This therapist has provided treatment to this pt following his previous sx and is well know at this facility. - ADLs Kitchen: Chop with knife, Peel fruits & vegetables, Open jars, Open bottle caps, Lift saucepan, Take dish out of oven, Place dish in microwave Household: Vacuum, Sweep/mop, Laundry Yard: Mow lawn, [place] Miscellaneous: Unlock front door, Handle money (change), Carry shopping bag, Open doors/Including car door, Drive - Pain left hand 5 Pain Intensity Range: 3, 8 - ROM Opposition: right 10/ left 10 ROM Comments: pt demo with a left IF amputation - Strength Shoulder: right 5/5 left 4/5 Elbow: right 5/5 left 4/5 Forearm: right 5/5 left 4-/5 Wrist: right 5/5 left 4-/5 Water Chemist: right 80# left 35# Lateral Pinch: right 10# left NT Tripod Pinch: right 18# left Nt - Sensation Thumb: right 2.83 left 2.83 Index: right 2.83 left NT Middle: right 2.83 left 2.83 Ring: right 2.83 left 2.83 Little: right 2.83 left 2.83 Sensation Comments: pt demo good sensation - Nine Hole Peg Right: 21.84 Left: 29.21 - Quick DASH-Disab of Arm,Shoulder& Hand Quick DASH Score: 72.5000 - Goals Goal:: Pt will demo a increase in left shoulder/bicep/tricep MMT by .5 mm grade to increase pts ind with ADLs and IADLs by d/c. Pt will demo a increase in left photographic intelligence officer strength by 15# to increase pts ind. with meal prep tasks by d/c Goal:: pt will report pain no greater than 2/10 with use of left UE/hand with daily occupations by d/c Goal:: pt will demo a reduction in 9-hole peg test by 5 sec demo increase in FMS to increase ind with money mtg by d/c Goal:: pt will demo a understanding of scar mtg by end of 2md session to decrease scar hypersensitivity by d/c Goal:: therapist will contact prosthetic companies to get quote to purse use of prosthetic devices to increase pts ind with ADLs and IADLS by d/c - Rehabilitation General Assessment: PT demo with weak left UE and photographic intelligence officer strength, along with hypersensitivity. initial eval therapist ed. pt on desensitization to perform at home so in clinic therapist can initiate left UE/photographic intelligence officer strengthening. Rehabilitation Potential: Good - Anticipated Interventions Anticipated Interventions: Strengthening, Scar Care, Desensitization, Sensory Retraining, Modalities, Joint Protection/Energy Conservation, Fine Motor Coord/Nate - Visit Plan Frequency: 2-3x /Week Duration: 4 Weeks General Plan: Therapy will inititate Left UE PRE and cont with left hand desensitization and progress to PRE to return pt to using left UE for assistive hand - TEXT: Thank you for the opportunity to evaluate your patient. For Medicare and Medicare HMO plans, please review the plan of care and approve it. It will need to be FAXED BACK to us at [phone] for Medicare purposes. Please let me know if there are questions or concerns regarding this plan of care. Physician Signature: Date:
--- NOTE | 2019-06-21 14:22 | HP.OTDCSUM ---
HP - OT D/C Summary It has been my pleasure to treat IVETT TANG Jr. under orders from JOSSY Gilman, for the diagnosis of nuroma of amputation stump for a total of 11 visit(s). Please see the following information for a summary of their discharge status. 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 left hand 9-hole peg test 27.60 a improvement from 29.21. pt demo left shoulder flex MMT at 5/5 bicep flex/ext 5/5. therapy is using upper body gym eq. to increase pts functional strength- he is however reluctant to increase weight on eq. as he does not want to hurt himself. Pt is using xavi system for biceps/triceps with 15#, mid row at 30#, shoulder press 24#, chest press at 25# shoulder internal/ext rotation at 5#. currently pt has plateaued with progress- pts fear of hurting himself limit his progress.pt has also been advised to stop using [place] wrap around his hand but still has not been able to do so. pt has been instructed in PRE with thera-band to use at home 2-3 x a day to cont. to maintain his strength- pt demo understanding in HEP. - Goals Patient Goals: Regain Strength, Decrease Pain, Improve Fine Motor Skills, Use Hand/Wrist/Arm Normally Again, Sleep Better, Be More Independent in ADLS, Decrease Sensitivity Goal:: Pt will demo a increase in left shoulder/bicep/tricep MMT by .5 mm grade to increase pts ind with ADLs and IADLs by d/c. 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 with meal prep tasks by d/c Goal:: pt will report pain no greater than 2/10 with use of left UE/hand with daily occupations by d/c Goal:: pt will demo a reduction in 9-hole peg test by 5 sec demo increase in FMS to increase ind with money mtg by d/c Goal:: pt will demo a understanding of scar mtg by end of 2md session to decrease scar hypersensitivity by d/c Goal:: therapist will contact prosthetic companies to get quote to purse use of prosthetic devices to increase pts ind with ADLs and IADLS by d/c - Plan Plan: pt has 1 more visit than D/C. with HEP - D/C Information If there are questions or concerns regarding this patient's occupational therapy, please fell free to call me at [phone]. Thank you for the referral of this patient. Sincerely, Kristie Alvarado, OTR/L, CHT
== END 2019-06-29 19:00 | disposition home or self-care (01) ==
LOC: OT 10:00
PROVIDERS: Family Provider Family Medicine; PCP Family Medicine; Referring Provider Nurse Practitioner Family; Visit Provider Nurse Practitioner Family
DX: S68.121D Partial traumatic metacarpophalangeal amputation of left index finger, subsequent encounter (principal); T87.32 Neuroma of amputation stump, left upper extremity; G90.512 Complex regional pain syndrome I of left upper limb; M79.645 Pain in left finger(s); M25.642 Stiffness of left hand, not elsewhere classified
CPT/HCPCS: 97035; 97110; 97166; 97530

== ENCOUNTER 2019-09-10 11:57 | Emergency (ER) | payer OTHER, SELFPAY ==
[2019-08-05 15:07] VITALS: BMI 35.3
[2019-09-10 11:59] VITALS: BP 142/87; PULSE 94; RESP 18; TEMP 36.1; O2SAT 97; BMI 38.1
--- NOTE | 2019-09-10 12:18 | CT_ITS ---
STUDY: CT ABDOMEN AND PELVIS WITHOUT CONTRAST REASON FOR EXAM: Male, 59 years old. LEFT FLANK PAIN X 5 DAYS RADIATION DOSAGE (If Supplied By Facility): CTDIvol = ( 20.60 ) mGy, DLP = ( 1209.76 ) mGycm TECHNIQUE: Transaxial images were obtained from the dome of the diaphragm to the symphysis pubis without oral contrast, and without intravenous contrast. Sagittal and coronal images were reconstructed. Individualized dose optimization techniques were used for this CT. COMPARISON: Comparison is made with prior examination dated July 17, 2017. FINDINGS: The visualized lung bases are unremarkable. The visualized portions of the heart are within normal limits. Normal liver. Normal gallbladder and extrahepatic biliary system. Normal spleen. Normal pancreas. Normal bilateral adrenal glands. Stable 2.3 sinus cyst in the lower midportion of the right kidney. Stable punctate calculus in the lower pole calyx of the left kidney. Normal visualized stomach. Normal small intestine. There are scattered colonic diverticula consistent with diverticulosis. The appendix is visualized and appears normal. Normal abdominal aorta. Normal inferior vena cava. Normal retroperitoneum. Normal urinary bladder. Phleboliths are seen within the pelvis. Normal abdominal wall. There are degenerative changes of the visualized lumbar spine. CT/Abdomen/Pelvis without Cont IMPRESSION: Stable examination. Electronically Signed: Jame Colbert, at 14:37 EDT , Service support ,
--- NOTE | 2019-09-10 12:19 | ED.VIS.GEN ---
History of Present Illness Chief Complaint: Flank Pain Informant: Patient Narrative: Patient states that for the past several days he has had a left flank pain. He states that it is stabbing and worse with movement. If he sits too long it starts to hurt worse. If he moves he it hurts worse. If he stands too long it hurts worse. He states he can see stars in his urine. States he had a kidney stone maybe 7 years ago and it felt exactly the same way. He was seen at his primary care office yesterday and was felt that it was most likely musculoskeletal and given cyclobenzaprine. He disagrees with this. Past Medical History - Allergies and Home Meds Allergies/Adverse Reactions: Allergies No Known Allergies Allergy (Verified 09/10/19 12:01) Primary Care Physician: Fidel Reyes MD [Primary Care Provider] - Smoking Status: Former smoker Review of Systems General: Denies: Chills, Fever, Sweats Eyes: Denies: Visual changes - bilaterally, Diplopia ENT: Denies: Rhinorrhea, Sore throat Cardiovascular: Denies: Chest pain, Palpitations Respiratory: Denies: Dyspnea, Cough, Dyspnea on exertion Gastrointestinal: Denies: Abdominal pain, Nausea, Vomiting, Diarrhea, Melena, Hematochezia Genitourinary: Reports: - - Left flank pain. Denies: Dysuria, Hematuria, Frequency Musculoskeletal: Reports: Back pain. Denies: Extremity Pain Skin: Denies: Rash, Wounds Neurological: Denies: Headache, Weakness, Numbness Physical Exam Vital Signs/Narrative: Vital Signs Temp Pulse Resp BP Pulse Ox 09/10/19 11:59 97.0 F L 94 18 142/87 H 97 General: Well nourished, Well developed, Obese, No Acute Distress Head: Normocephalic, Atraumatic Eyes: Perrl, EOMI ENT: Moist mucous membranes, No rhinorrhea Neck: Supple, Nontender Cardiovascular: Regular rate, Regular rhythm, No murmurs Respiratory: No distress, CTA bilaterally, Chest nontender Abdomen: Soft, Nontender, Nondistended, Normal bowel sounds Back: - - Patient has tenderness palpation in the left paraspinal lumbar musculature Extremities: Nontender, No edema Skin: Normal color, No rash Neurological: Alert, Oriented x3, Cranial nerves II-XII grossly intact, Normal Strength, Normal Sensation Psychological: Normal affect, Normal Mood ED Disposition - Plan for ED Patient: Disposition: Home or Assisted Living Diagnosis: Lumbar paraspinal muscle spasm Instructions: FLANK PAIN, Uncertain Cause Prescriptions: Oxycodone HCl/Acetaminophen [Percocet 5/325] 1 tab PO Q6H PRN PRN 3 Days #12 tab PRN Reason: Pain Prescription Printed Diazepam [Valium] 5 mg PO Q8 PRN #15 tab PRN Reason: Muscle Spasm Prescription Printed Referrals: Fidel Reyes MD [Primary Care Provider] - 1 Week Additional Instructions: Discontinue the cyclobenzaprine if you are using Valium.
[2019-09-10] MEDS: Ketorolac 30 MG/ML Syringe IV (12:38)
[2019-09-10 12:48] LABS: Absolute Lymphocyte Count 1.66 X10^3/uL (0.83-4.51); Absolute Neutrophil Count 4.4 X10^3/uL (2.0-7.7); Basophil# 0.05 X10^3/uL; Basophil% 0.7 % (0-1); Eosinophil# 0.13 X10^3/uL; Eosinophils% 1.9 % (0-5); Hematocrit 40.7 % (40-54); Hemoglobin 13.4 g/dL (13.0-16.5); Lymphocyte # 1.66 X10^3/ul (4.0); Lymphocyte % 24.1 % (19-41); Mean Corp Hgb Conc 32.9 g/dL (32-36); Mean Corpuscular Hgb 27.6 pg (27.0-32.0); Mean Corpuscular Volume 83.7 fL (80-94); Mean Platelet Vol. 8.4 fl (6.2-12.0); Monocyte# 0.62 X10^3/uL; NRBC Flagged by Analyzer 0 % (0-5); Neutrophil # 4.39 X10^3/uL (2.7-7.7); Neutrophil % 63.7 % (47-70); Platelet Count 328 K/mm3 (150-450); RBC Distribution Width CV 13.5 % (11.6-14.6); RBC Distribution Width SD 41.1 fl (35.1-43.9); Red Blood Count 4.86 M/mm3 (4.6-6.2); White Blood Count 6.9 K/mm3 (4.4-11.0)
[2019-09-10 13:12] LABS: Anion Gap 6 (5-15); BUN 7 mg/dL (7-18); BUN/Creat Ratio 7.2 RATIO (10-20); Calcium,Total 8.2 mg/dL (8.5-10.1); Chloride 102 mmol/L (98-107); Creatinine, Serum 0.98 mg/dL (0.70-1.30); EST Glomerular Filtration Rate 83 mL/min (>60); Est Glom Filt Rate - Afr Amer 100 mL/min (>60); Estimated Creatinine Clearance 81.73 ml/min; Glucose 197 mg/dL (74-106); Potassium 4.2 mmol/L (3.5-5.1); Sodium Level 135 mmol/L (136-145)
[2019-09-10 13:56] LABS: Bacteria 0 SEEN /hpf (None Seen); Mucous, Urine 0 SEEN /hpf (<or=2+); Red Blood Cells-Urine 0 SEEN /hpf (0-5); Squamous Epithelial Cells - UA 0 SEEN /hpf (0-5)
[2019-09-10 13:58] VITALS: BP 130/83; PULSE 71; RESP 18; TEMP 36.5; O2SAT 98
[2019-09-10 13:58] LABS: Color, Urine Yellow (Yellow); Glucose, Dipstick 100 mg/dl (Normal); Ketone-Dipstick Negative (Negative); Leukocyte Esterase-Dipstick 25 /ul (Negative); Nitrite-Dipstick Negative (Negative); Occult Blood-Urine Negative /ul (Negative); Protein-Dipstick Negative (Negative); Urine Bilirubin Dipstick Negative (Negative); Urine Clarity Clear (Clear); Urine Urobilinogen Normal (Normal)
[2019-09-10 14:26] LABS: White Blood Cells 0-5 SEEN /hpf (0-5)
== END 2019-09-10 14:56 | disposition home or self-care (01) ==
PROVIDERS: Emergency Provider Emergency Medicine; PCP Family Medicine
DX: M62.830 Muscle spasm of back (principal); Z87.891 Personal history of nicotine dependence
CPT/HCPCS: 74176; 80048; 81001; 85025; 96374; 99284; A4216

== ENCOUNTER → 2020-04-04 11:52 | Outpatient (CLI) | payer SELFPAY ==
[2020-03-02 15:28] VITALS: BMI 38.1
== END ==
PROVIDERS: PCP Family Medicine; Referring Provider Family Medicine; Visit Provider Family Medicine
DX: Z00.00 Encounter for general adult medical examination without abnormal findings (principal)

== ENCOUNTER → 2020-09-27 08:59 | Outpatient (CLI) | payer MEDICARE, SELFPAY ==
[2020-07-05 11:27] VITALS: BMI 37.9
[2020-09-27 10:56] LABS: AST(SGOT) 20 U/L (15-37); Alanine Aminotransfer ALT/SGPT 28 U/L (16-61); Albumin, Serum 3.8 g/dL (3.2-5.0); Alkaline Phosphatase 68 U/L (45-117); Anion Gap 9 (5-15); BUN 16 mg/dL (7-18); BUN/Creat Ratio 18.1 RATIO (10-20); Calcium,Total 8.3 mg/dL (8.5-10.1); Chloride 104 mmol/L (98-107); Creatinine, Serum 0.88 mg/dL (0.70-1.30); EST Glomerular Filtration Rate 93 mL/min (>60); Est Glom Filt Rate - Afr Amer 112 mL/min (>60); Glucose 149 mg/dL (74-106); PSA,Total - Annual Screen 0.81 ng/mL (0.00-4.00); Potassium 4.1 mmol/L (3.5-5.1); Protein, Total 7.8 g/dL (6.4-8.2); Sodium Level 137 mmol/L (136-145); Thyroid Stim Hormone (TSH) 0.96 uIU/mL (0.358-3.74)
== END ==
PROVIDERS: PCP Family Medicine; Referring Provider Family Medicine; Visit Provider Family Medicine
DX: E11.9 Type 2 diabetes mellitus without complications (principal); Z12.5 Encounter for screening for malignant neoplasm of prostate
CPT/HCPCS: 36415; 80053; 84153; 84403; 84443; G0103

== ENCOUNTER → 2020-10-05 11:43 | Outpatient (CLI) | payer MEDICARE, SELFPAY ==
[2020-07-05 11:27] VITALS: BMI 37.9
--- NOTE | 2020-10-05 11:46 | RAD_ITS ---
INDICATION: LEFT KNEE PAIN EXAMINATION/TECHNIQUE: X-RAY - LEFT XR Knee Complete 4 Views or More COMPARISON: None. FINDINGS: No acute fracture or malalignment. Minimal tricompartmental joint space narrowing and osteophytosis. Small joint effusion. The soft tissues are unremarkable. RAD/Knee 4 or More Views IMPRESSION: Minimal tricompartmental degenerative arthrosis of the knee. Small joint effusion. Electronically Signed: Braeden Dickey MD at 16:47 EDT Tel , Service support ,
== END ==
LOC: MTLAB 11:45 → MTRAD 11:45
PROVIDERS: PCP Family Medicine; Referring Provider Family Medicine; Visit Provider Family Medicine
DX: M25.562 Pain in left knee (principal)
CPT/HCPCS: 73564

== ENCOUNTER 2020-10-27 10:30 | Outpatient (RCR) | payer OTHER, SELFPAY ==
[2020-07-05 11:27] VITALS: BMI 37.9
--- NOTE | 2020-08-08 11:54 | HP.PTEVAL_ITS ---
Patient's Visit Information IVETT TANG Jr. is a 59 year old M referred to Physical Therapy by Dr. Nik Orellana MD with a diagnosis of CRP L upper limb, L finger amputation. Date of Evaluation: 08/08/20 Physical Therapist: Himanshu Rowland, DPT, OCS, CSCS - Visit Plan Frequency: 3x /Week Duration: 4-6 Weeks Plan: 3x/week for 4 weeks for.. 1. Dipak to see for apporpirateness of DN fo rscarring adn pain in L hand and tenderness in rhomboids and UT. 2. Strength and ROM ex for B scap, shoulder, elbows to HEP strength. 3. Pain control of L hand with desensitization massage, scar massage, TENS with Mh ass Helpful and tolerated. - Subjective Stack of steel fell on him Jul 2015 on L UE. Has had 5 surgeries since then. Most recently 1.5 yrs ago. L hand has tingling and pain and L arm is weak. has alot of night pain and it keeps him up, he gets 5 out of normal 7 hours of sleep. Hasn't slept full night in long long time due to pain. L hand is 4/10 constant and night time is worse. The L hand draw up so he needs to use other hand to open it back up. Has seen [facility] hand therapist over the last 4 years. Can't use L arm due to hand dysfunction. If he uses it alot he is in a lot of pain. Is R handed. 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 Basic ADLs are getting done. Dressing takes extra time and doing house chores can hurt. He can tie his own shoes. Hard to unbutton pants. Difficult due to pain and unccordination. Gripping steering wheel with L is hard. Sent over for pain management and scar management. Workers comp says needs physical therapy and not sure what the next step is. Does hand exercises at home, has band but not using it. - Pain L hand Pain Intensity (Out of 10): 4 Pain Intensity Range: 8 Comment: worse end of day. - Objective LWearing weight lifting gloves. Walks safe and I and transfers well, steps reciprocally but prefers R to descend. Tends to pull with both hands. Balance is good. cervical aROM WFL and without pain. Scapular AROM is B mox limited actively, hard for him to squeeze scapula together. Very tender over B UT and rhomboids. Shoulder aROM is WFL and full without increased pain. ER limited to about 30 degrees B. Elbow AROM WFL adn symmetrical. Wrist aROM WFL B with pro/sup/flexion/extension, slight pain with movement L wrist. reflexes 2/3 B bi and triceps. Sensation in UE is WNL to gross light touch outside of scarred amputation area of L 2nd digit whcih is maximally tender to even brushing touch. Digits in L hand 3/4/5 move well, slightly stiff to fully extend due to pain but can do it, can fist OK in that hand also albeit painful. Thumb ext strength 4/5 B. Moderate scar tissue palpable in amuptation sight of L 2 nd digit adn maximally tender to touch. Generally patient has decent function but does not get enough use out of L UE due to pain in hand. - Balance Scores Functional Gait Assessment Score: 27 % Disability: 10.0000 - Goals Goal 1:: Full UE movement and function of elbow, scap, shoulder L without increased pain in hand to show 50% improved function Goal Time Frame: 4-6 Weeks Goal 2:: Sleep without waking at night due to pain. Goal Time Frame: 4-6 Weeks Goal 3:: I approp HEP for L UE ex Goal Time Frame: 4-6 Weeks Goal 4:: Pain 0-2/10 at worst and manageable Goal Time Frame: 4-6 Weeks - Rehabilitation Potential Physical Therapy Diagnosis: L finger amputation and CRP Rehabilitation Potential: Questionable - Anticipated Interventions Patient/Client Instruction: Educate patient on: Condition, Plan of Care For the Purpose of:: To decrease pain, To increase ROM, To improve muscle performance and motor function Therapeutic Exercise to Include: Strength training, Postural training, Flexibilty training, Gait and locomotor training, Passive ROM, Active ROM For the Purpose of:: To decrease pain, To improve muscle performance and motor function, To increase tolerance to activity/condition/position, To decrease level of supervision to perform tasks Manual Therapy Techniques to Include: Scar massage, Mobilization, Other Comment: desensitization massage, DN For the Purpose of:: To decrease pain TENS: Yes Thermo therapy (hot pack): Yes For the Purpose of:: To decrease pain Thank you for the opportunity to evaluate your patient. For Medicare and Medicare HMO plans, please review the plan of care and approve it. It will need to be FAXED BACK to us at [phone] for Medicare purposes. For Medicare only, by signing this I certify the plan of care. Please let me know if there are questions or concerns regarding this plan of care. Physician Signature: Date:
--- NOTE | 2020-09-04 11:51 | HP.PTREVAL_ITS ---
Dr. Nik Orellana MD, It has been my pleasure to treat IVETT TANG Jr. over the last 10 visits for CRP L upper limb, L finger amputation. Please see the progress note below for an update on the physical therapy plan of care! Subjective: Pt reports that the pain levels are better after therapy and he feels that he is 50% better. Feels that dry needling is really helpful and he is making progress. Pt states he was able to pick some dimes off the floor. Objective/Function: Patient was able to complete without incidence. He had PT prior to DN today which makes him a lot more tender. Wearing weight lifting gloves on bilatearl LE. Patient is able to perform a scapular retraction with verbal cues. Shoulder AROM is WFL and full without increased pain. Elbow AROM WFL and symmetrical. Wrist AROM WFL B with pro/sup/flexion/extension, slight pain with movement L wrist. Sensation in UE is WNL to gross light touch outside of scarred amputation area of L 2nd digit whcih is moderate tender. Digits in L hand 3/4/5 move well, slightly stiff to fully extend due to pain but can do it, can fist OK in that hand also albeit painful. Thumb ext strength 4+/5 B. 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 Pt. to follow up with physician Stevenson. Goals Goal 1:: Full UE movement and function of elbow, scap, shoulder L without increased pain in hand to show 50% improved function Goal Time Frame: 4-6 Weeks Goal 2:: Sleep without waking at night due to pain. Goal Time Frame: 4-6 Weeks Goal 3:: I approp HEP for L UE ex Goal Time Frame: 4-6 Weeks Goal 4:: Pain 0-2/10 at worst and manageable Goal Time Frame: 4-6 Weeks Anticipated Interventions Patient/Client Instruction: Educate patient on: Condition, Plan of Care For the Purpose of:: To decrease pain, To increase ROM, To improve muscle performance and motor function Therapeutic Exercise to Include: Strength training, Postural training, Flexibilty training, Gait and locomotor training, Passive ROM, Active ROM For the Purpose of:: To decrease pain, To improve muscle performance and motor function, To increase tolerance to activity/condition/position, To decrease level of supervision to perform tasks Manual Therapy Techniques to Include: Scar massage, Mobilization, Other Comment: desensitization massage, DN For the Purpose of:: To decrease pain TENS: Yes Thermo therapy (hot pack): Yes For the Purpose of:: To decrease pain Please do not hesitate to contact me at [phone] by phone or if you have questions or concerns regarding this new plan of care! Sincerely, TAWANDA BarryT
--- NOTE | 2020-09-19 11:03 | HP.PTREVAL_ITS ---
Dr. Nik Orellana MD, It has been my pleasure to treat IVETT TANG Jr. over the last 13 visits for CRP L upper limb, L finger amputation. Please see the progress note below for an update on the physical therapy plan of care! Subjective: Many better days. Drove alot Friday 60 miles and hurt 7/10 for the rest of the day. Squeezing sponge at home and pulling strap. dry needling has really helped. Hurts that day but good the next day 1-2/10 for 3 days and then gradually worsens. Rubbing brush on hand and it helps. Sleep is not great as it hurts more at night. saw doctor last weeka dn was happy with those improvements Objective/Function: Hand function still pretty good with 4-/5 strength L hand. Minimally sensitive to pressure on L dorsum of hand and scar tissue when talking to patient distracted, max if he notices and dwells on it. elbow function is full and strength 4-, shoulder function improving with elevation to 130 and sap showing better movement today. Appropriate to cotninue therapy 2-3x/week for 4- 5 weeks with new C-9. Plan Plan: 2-3x/week for 5 weeks for. 1. Dry needlign 2x/week for 2 weeks then 1x/week x 3 weeks, please grab Dipak to have him Dry needled in the first two weeek.s. 2. UE strength program in gym on machines emphasizing shoulder ROM and desensitiazation to hand with pulling and pushing, include twisting ex for taking cap off. Goals Goal 1:: Full UE movement and function of elbow, scap, shoulder L without increased pain in hand to show 50% improved function Goal Time Frame: 4-6 Weeks Goal Progress: Progressing Goal 2:: Sleep without waking at night due to pain. Goal Time Frame: 4-6 Weeks Goal Progress: Not Progressing Goal 3:: I approp HEP for L UE ex Goal Time Frame: 4-6 Weeks Goal Progress: Progressing Goal 4:: Pain 0-2/10 at worst and manageable Goal Time Frame: 4-6 Weeks Goal Progress: intermittent improved. Goal 5:: Tolerate opening a jar with L UE without lingering pain Goal Time Frame: 4-6 Weeks Goal Progress: NEW GOAL Anticipated Interventions Patient/Client Instruction: Educate patient on: Condition, Plan of Care For the Purpose of:: To decrease pain, To increase ROM, To improve muscle performance and motor function Therapeutic Exercise to Include: Strength training, Postural training, Flexibilty training, Gait and locomotor training, Passive ROM, Active ROM For the Purpose of:: To decrease pain, To improve muscle performance and motor function, To increase tolerance to activity/condition/position, To decrease level of supervision to perform tasks Manual Therapy Techniques to Include: Scar massage, Mobilization, Other Comment: desensitization massage, DN For the Purpose of:: To decrease pain TENS: Yes Thermo therapy (hot pack): Yes For the Purpose of:: To decrease pain Please do not hesitate to contact me at [phone] by phone or Fax: if you have questions or concerns regarding this new plan of care! Sincerely, Himanshu Rowland, DPT, OCS, CSCS
--- NOTE | 2020-12-07 17:18 | HP.PT.NRP ---
IVETT TANG was seen in my office for initial evaluation on 08/08/20. The following Plan of Care was established for this patient: Initial Frequency: 3x /Week Initial Duration: 4-6 Weeks Patient/Client Instruction: Educate patient on: Condition, Plan of Care For the Purpose of:: To decrease pain, To increase ROM, To improve muscle performance and motor function Therapeutic Exercise to Include: Strength training, Postural training, Flexibilty training, Gait and locomotor training, Passive ROM, Active ROM For the Purpose of:: To decrease pain, To improve muscle performance and motor function, To increase tolerance to activity/condition/position, To decrease level of supervision to perform tasks Manual Therapy Techniques to Include: Scar massage, Mobilization, Other Comment: desensitization massage, DN For the Purpose of:: To decrease pain TENS: Yes Thermo therapy (hot pack): Yes For the Purpose of:: To decrease pain This patient was last seen in our office 10/27/20. Pertinent comments regarding their Physical therapy will appear below: Pt seen 23 visits of POC including many dry needling visits. He was 30% better last checked. He will be discontinued at this timeas approval has run out. At this point I will be discontinuing this patient from physical therapy. I would be happy to see this patient again in the future if found appropriate by the physician. Thank you! Himanshu Rowland, DPT, OCS, CSCS
== END 2020-10-27 19:00 | disposition home or self-care (01) ==
LOC: PT 10:30
PROVIDERS: PCP Family Medicine; Referring Provider Surgery; Visit Provider Surgery
DX: S60.411D Abrasion of left index finger, subsequent encounter (principal); S62.661D Nondisplaced fracture of distal phalanx of left index finger, subsequent encounter for fracture with routine healing; S62.66 Nondisplaced fracture of distal phalanx of finger; S69.92XD Unspecified injury of left wrist, hand and finger(s), subsequent encounter; S61.213D Laceration without foreign body of left middle finger without damage to nail, subsequent encounter; Z89.022 Acquired absence of left finger(s); T87.32 Neuroma of amputation stump, left upper extremity; S61.402S Unspecified open wound of left hand, sequela; G90.512 Complex regional pain syndrome I of left upper limb; M79.645 Pain in left finger(s); M25.642 Stiffness of left hand, not elsewhere classified
CPT/HCPCS: 97110; 97140; 97163; 97164; 97530

== ENCOUNTER → 2021-02-28 09:23 | Outpatient (CLI) | payer MEDICARE, SELFPAY ==
[2021-02-28 12:58] LABS: ALB/GLOB Ratio 0.9 RATIO (0.9-2.4); AST(SGOT) 18 U/L (15-37); Alanine Aminotransfer ALT/SGPT 30 U/L (16-61); Albumin, Serum 3.7 g/dL (3.2-5.0); Alkaline Phosphatase 69 U/L (45-117); Anion Gap 8 (5-15); BUN 9 mg/dL (7-18); BUN/Creat Ratio 11.8 RATIO (10-20); Calcium,Total 8.6 mg/dL (8.5-10.1); Chloride 104 mmol/L (98-107); Creatinine, Serum 0.76 mg/dL (0.70-1.30); EST Glomerular Filtration Rate 110 mL/min (>60); Est Glom Filt Rate - Afr Amer 133 mL/min (>60); Glucose 187 mg/dL (74-106); Potassium 4.2 mmol/L (3.5-5.1); Protein, Total 7.7 g/dL (6.4-8.2); Sodium Level 135 mmol/L (136-145)
== END ==
PROVIDERS: PCP Family Medicine; Referring Provider Family Medicine; Visit Provider Family Medicine
DX: E11.9 Type 2 diabetes mellitus without complications (principal); I10 Essential (primary) hypertension; E78.5 Hyperlipidemia, unspecified; Z12.5 Encounter for screening for malignant neoplasm of prostate
CPT/HCPCS: 36415; 80053; 84403; 84443

== ENCOUNTER → 2021-06-20 12:06 | Outpatient (CLI) | payer MEDICARE, SELFPAY | LOC: MFPLAB 12:07 → LABSPEC 12:08 | PROVIDERS: PCP Family Medicine; Referring Provider Family Medicine; Visit Provider Family Medicine | DX: R05.9 Cough, unspecified (principal) | CPT/HCPCS: 87635; U0005; U0003 ==

== ENCOUNTER → 2021-06-25 10:27 | Outpatient (CLI) | payer MEDICARE, SELFPAY | PROVIDERS: PCP Family Medicine; Referring Provider Family Medicine; Visit Provider Family Medicine | DX: R05.9 Cough, unspecified (principal) | CPT/HCPCS: 87633 ==

== ENCOUNTER → 2021-06-25 16:48 | Outpatient (CLI) | payer MEDICARE, SELFPAY ==
--- NOTE | 2021-06-25 16:51 | RAD_ITS ---
INDICATION: COUGH EXAMINATION/TECHNIQUE: X-RAY - XR Chest 2 Views COMPARISON: 05/19/2017. FINDINGS: LINES/DEVICES: None. LUNGS: Peribronchial cuffing demonstrates no significant change in comparison to the prior study. No consolidation, edema or effusion. No pneumothorax. MEDIASTINUM AND CARDIOVASCULAR STRUCTURES: Cardiac silhouette not enlarged. Central airways and mediastinal contour are unremarkable. BONES AND SOFT TISSUES: Unremarkable. RAD/Chest PA and Lateral IMPRESSION: Peribronchial cuffing, would recommend clinical correlation for acute bronchitis or airway disease. No radiographic evidence of acute cardiopulmonary disease. Electronically Signed: Charly Tubbs MD at 8:17 EST Tel , Service support ,
== END ==
PROVIDERS: PCP Family Medicine; Referring Provider Family Medicine; Visit Provider Family Medicine
DX: R05.9 Cough, unspecified (principal)
CPT/HCPCS: 71046; 87633

== ENCOUNTER → 2022-02-06 | Outpatient (CLI) | payer MEDICARE, SELFPAY ==
[2022-02-06 12:25] LABS: Vitamin B12 953 pg/mL (211-911)
[2022-02-06 12:35] LABS: Anion Gap 7 (5-15); BUN 13 mg/dL (7-18); BUN/Creat Ratio 13.8 RATIO (10-20); Calcium,Total 8.9 mg/dL (8.5-10.1); Chloride 105 mmol/L (98-107); Cholesterol 150 mg/dL (200); Creatinine, Serum 0.94 mg/dL (0.70-1.30); EST Glomerular Filtration Rate 86 mL/min (>60); Est Glom Filt Rate - Afr Amer 104 mL/min (>60); Glucose 174 mg/dL (74-106); High Density Lipoprotein 35 mg/dL; PSA,Total - Annual Screen 1.07 ng/mL (0.00-4.00); Potassium 4.4 mmol/L (3.5-5.1); Sodium Level 136 mmol/L (136-145); Thyroid Stim Hormone (TSH) 1.05 uIU/mL (0.358-3.74); Triglycerides 224 mg/dL; Very Low Density Lipoprotein 45 mg/dL (5-40)
== END | disposition home or self-care (01) ==
LOC: MFPLAB 09:46
PROVIDERS: PCP Family Medicine; Referring Provider Family Medicine; Visit Provider Family Medicine
DX: E11.9 Type 2 diabetes mellitus without complications (principal); Z12.5 Encounter for screening for malignant neoplasm of prostate
CPT/HCPCS: 36415; 80048; 80061; 82607; 84153; 84403; 84443; G0103

== ENCOUNTER → 2022-03-05 | Outpatient (CLI) | payer MEDICARE, SELFPAY | END | disposition home or self-care (01) | PROVIDERS: PCP Family Medicine; Visit Provider Family Medicine | DX: N39.0 Urinary tract infection, site not specified (principal) | CPT/HCPCS: 87086; 87088 ==

== ENCOUNTER → 2022-06-27 | Outpatient (CLI) | payer MEDICARE, SELFPAY ==
--- NOTE | 2022-06-27 10:33 | RAD_ITS ---
INDICATION: productive cough EXAMINATION/TECHNIQUE: X-RAY - XR Chest 2 Views COMPARISON: Chest radiograph from 06/25/2021 FINDINGS: Support devices: None. No focal consolidations, effusions, or sizable pneumothorax. Cardiomediastinal silhouette is within normal limits. No acute findings in the bones or soft tissues. RAD/Chest PA and Lateral IMPRESSION: No radiographic evidence of acute cardiopulmonary disease. Electronically Signed: Jeff Vargas, at 15:59 EST ,
== END | disposition home or self-care (01) ==
LOC: MTRAD 10:33
PROVIDERS: PCP Family Medicine; Referring Provider Family Medicine; Visit Provider Family Medicine
DX: R05.9 Cough, unspecified (principal)
CPT/HCPCS: 71046

== ENCOUNTER → 2023-01-15 | Outpatient (CLI) | payer MEDICARE, SELFPAY ==
[2023-01-15 12:58] LABS: ALB/GLOB Ratio 0.9 RATIO (0.9-2.4); AST(SGOT) 16 U/L (15-37); Alanine Aminotransfer ALT/SGPT 26 U/L (16-61); Albumin, Serum 3.6 g/dL (3.2-5.0); Alkaline Phosphatase 55 U/L (45-117); Anion Gap 9 (5-15); BUN 12 mg/dL (7-18); BUN/Creat Ratio 12.4 RATIO (10-20); Calcium,Total 8.7 mg/dL (8.5-10.1); Chloride 102 mmol/L (98-107); Cholesterol 149 mg/dL (200); Creatinine, Serum 0.97 mg/dL (0.70-1.30); EST Glomerular Filtration Rate 83 mL/min (>60); Est Glom Filt Rate - Afr Amer 101 mL/min (>60); Globulin 4.1 g/dL (2.2-4.2); Glucose 178 mg/dL (74-106); High Density Lipoprotein 35 mg/dL; Potassium 4.2 mmol/L (3.5-5.1); Protein, Total 7.7 g/dL (6.4-8.2); Sodium Level 135 mmol/L (136-145); Triglycerides 277 mg/dL; Very Low Density Lipoprotein 55 mg/dL (5-40)
[2023-01-15 13:05] LABS: Vitamin B12 440 pg/mL (211-911)
== END | disposition home or self-care (01) ==
LOC: MFPLAB 10:16
PROVIDERS: PCP Family Medicine; Visit Provider Family Medicine
DX: E11.9 Type 2 diabetes mellitus without complications (principal)
CPT/HCPCS: 36415; 80053; 80061; 82607

== ENCOUNTER → 2023-06-17 | Outpatient (CLI) | payer MEDICARE, SELFPAY ==
[2023-06-17 10:02] LABS: Bacteria 0 SEEN /hpf (None Seen); Red Blood Cells-Urine 0 SEEN /hpf (0-5); Squamous Epithelial Cells - UA 0 SEEN /hpf (0-5)
[2023-06-17 12:32] LABS: Color, Urine Yellow (Yellow); Glucose, Dipstick Normal (Normal); Ketone-Dipstick 5 mg/dl (Negative); Leukocyte Esterase-Dipstick 25 /ul (Negative); Nitrite-Dipstick Negative (Negative); Occult Blood-Urine Negative /ul (Negative); Protein-Dipstick Negative (Negative); Urine Bilirubin Dipstick Negative (Negative); Urine Clarity Clear (Clear); Urine Urobilinogen Normal (Normal)
[2023-06-17 12:44] LABS: Mucous, Urine 1+ /hpf (<or=2+); White Blood Cells 0-5 SEEN /hpf (0-5)
[2023-06-17 12:46] LABS: Microalbumin:Creatinine Ratio 20.3 mg/g CRE (<30 mg/g CRE)
[2023-06-18 15:06] LABS: Anion Gap 4 (5-15); BUN 11 mg/dL (7-18); Calcium,Total 8.9 mg/dL (8.5-10.1); Chloride 106 mmol/L (98-107); Cholesterol 146 mg/dL (200); Creatinine, Serum 0.91 mg/dL (0.70-1.30); EST Glomerular Filtration Rate 89 mL/min (>60); Est Glom Filt Rate - Afr Amer 107 mL/min (>60); Glucose 146 mg/dL (74-106); High Density Lipoprotein 33 mg/dL; PSA,Total - Annual Screen 0.99 ng/mL (0.00-4.00); Potassium 4.3 mmol/L (3.5-5.1); Sodium Level 137 mmol/L (136-145); Thyroid Stim Hormone (TSH) 0.86 uIU/mL (0.358-3.74); Triglycerides 210 mg/dL; Very Low Density Lipoprotein 42 mg/dL (5-40)
== END | disposition home or self-care (01) ==
LOC: MFPLAB 09:58
PROVIDERS: PCP Family Medicine; Visit Provider Family Medicine
DX: Z00.00 Encounter for general adult medical examination without abnormal findings (principal); E11.9 Type 2 diabetes mellitus without complications; Z12.5 Encounter for screening for malignant neoplasm of prostate
CPT/HCPCS: 36415; 80048; 80061; 81001; 82043; 82570; 83036; 84153; 84443; G0103

== ENCOUNTER → 2023-09-16 | Outpatient (CLI) | payer MEDICARE, SELFPAY ==
--- NOTE | 2023-09-16 11:42 | RAD_ITS ---
INDICATION: cervicalgia EXAMINATION/TECHNIQUE: X-RAY - XR Spine Cervical 4 or 5 Views COMPARISON: No relevant prior comparison study available FINDINGS: VERTEBRAE: Preserved vertebral body height. No fracture. No spondylolisthesis. Preservation of the normal cervical lordosis. No significant facet arthropathy. DISCS: Narrowing of C5-C6 disc space with small posterior lateral degenerative spurs larger on the left side. NECK SOFT TISSUES: No prevertebral soft tissue widening. LUNG APICES: Clear. RAD/Cerv Spine 4 or 5 Views IMPRESSION: Degenerative changes predominantly at the level of C5-C6. Electronically Signed: Hima Gonzales MD at 10:52 EDT ,
== END | disposition home or self-care (01) ==
LOC: MTRAD 11:37
PROVIDERS: PCP Family Medicine; Referring Provider Family Medicine; Visit Provider Family Medicine
DX: M54.2 Cervicalgia (principal)
CPT/HCPCS: 72050

== ENCOUNTER → 2024-06-17 | Outpatient (CLI) | payer MEDICARE, SELFPAY ==
[2024-06-17 12:50] LABS: Hemoglobin A1c 7.2 % (3.8-5.6)
[2024-06-17 13:01] LABS: ALB/GLOB Ratio 0.9 RATIO (0.9-2.4); AST(SGOT) 20 U/L (15-37); Alanine Aminotransfer ALT/SGPT 30 U/L (16-61); Albumin, Serum 3.6 g/dL (3.2-5.0); Alkaline Phosphatase 58 U/L (45-117); Anion Gap 7 (5-15); BUN 14 mg/dL (7-18); BUN/Creat Ratio 14.4 RATIO (10-20); Calcium,Total 8.8 mg/dL (8.5-10.1); Chloride 107 mmol/L (98-107); Cholesterol 149 mg/dL (200); Creatinine, Serum 0.98 mg/dL (0.70-1.30); EST Glomerular Filtration Rate 82 mL/min (>60); Est Glom Filt Rate - Afr Amer 99 mL/min (>60); Globulin 4.1 g/dL (2.2-4.2); Glucose 184 mg/dL (74-106); High Density Lipoprotein 40 mg/dL; PSA,Total - Annual Screen 0.91 ng/mL (0.00-4.00); Potassium 4.4 mmol/L (3.5-5.1); Protein, Total 7.7 g/dL (6.4-8.2); Sodium Level 137 mmol/L (136-145); Triglycerides 224 mg/dL; Very Low Density Lipoprotein 45 mg/dL (5-40)
== END | disposition home or self-care (01) ==
LOC: MFPLAB 10:06
PROVIDERS: PCP Family Medicine; Referring Provider Family Medicine; Visit Provider Family Medicine
DX: Z00.00 Encounter for general adult medical examination without abnormal findings (principal); E11.69 Type 2 diabetes mellitus with other specified complication; E11.59 Type 2 diabetes mellitus with other circulatory complications; Z12.5 Encounter for screening for malignant neoplasm of prostate
CPT/HCPCS: 36415; 80053; 80061; 83036; 84153; 84443; G0103

== ENCOUNTER → 2024-08-24 | Outpatient (CLI) | payer MEDICARE, SELFPAY ==
--- NOTE | 2024-08-24 15:52 | RAD_ITS ---
PROCEDURE: L/S SPINE W BEND MIN 6 VW REASON FOR EXAM: Low back pain TECHNIQUE: AP, lateral, flexion and extension and bilateral obliques, 6 total images COMPARISON: None. FINDINGS: 5 [id number] lumbar vertebral type bodies. Bowel gas overlies the vertebral bodies on the AP view. [id number] appearing anterior left osteophyte formation L1-L3. No fracture or malalignment. No evidence of spondylolysis identified. No evidence of spinal instability on flexion-extension views. Disc spaces appear within limits. Moderate appearing visualized colonic gas and stool. RAD/L/S Spine w Bend Min 6 Vw IMPRESSION: Study appears within limits as above. Reading Location: [id number]
== END | disposition home or self-care (01) ==
LOC: MTRAD 15:49
PROVIDERS: PCP Family Medicine; Referring Provider Family Medicine; Visit Provider Family Medicine
DX: M50.30 Other cervical disc degeneration, unspecified cervical region (principal)
CPT/HCPCS: 72114

== ENCOUNTER → 2025-06-02 | Outpatient (CLI) | payer MEDICARE, SELFPAY ==
[2025-06-02 13:38] LABS: AST(SGOT) 16 U/L (<=37); Alanine Aminotransfer ALT/SGPT 15 U/L (<=46); Albumin, Serum 4.2 g/dL (3.4-4.8); Alkaline Phosphatase 59 U/L (40-129); Anion Gap 13 (5-15); BUN 15 mg/dL (4-19); BUN/Creat Ratio 16.0 RATIO (10-20); Calcium,Total 8.8 mg/dL (7.6-11.0); Carbon Dioxide 22.7 mmol/L (21.0-32.0); Chloride 103 mmol/L (98-108); Cholesterol 143 mg/dL (<=200); Globulin 3.0 g/dL (2.2-4.2); Glucose 178 mg/dL (70-99); Low Density Lipoprotein Calc. 72 mg/dL; Potassium 4.2 mmol/L (3.3-5.1); Triglycerides 225 mg/dL; Very Low Density Lipoprotein 45 mg/dL (5-40); Vitamin B12 343 pg/mL (180-914); cholesterol:hdl ratio screen 4.19
== END | disposition home or self-care (01) ==
LOC: MFPLAB 10:21
PROVIDERS: PCP Family Medicine; Visit Provider Family Medicine
DX: E11.9 Type 2 diabetes mellitus without complications (principal)
CPT/HCPCS: 36415; 80053; 80061; 82607; 84403; 84443